=== PATIENT | male | born 1940 | race Caucasian/White ===

== ENCOUNTER 2017-06-03 02:26 | Inpatient (IN) | payer OTHER ==
[~2017-06-03] VITALS: Ht 175.3 cm; Wt 85.0 kg
[~2017-06-03 02:26] MED LIST: CRESTOR5 M1 PO; DILTIAZEM 24HR180 MG PO; ELIQUIS5 M1 PO; METOPROLOL SUC100 M2 PO; METOPROLOL SUCC50 M2 PO; OMEPRAZOLE20 M2 PO; SLOW-MAG71.5 MG PO; TERAZOSIN HCL10 M1 PO
--- NOTE | 2017-06-03 10:01 | Operative Report ---
Operative/Inv Procedure Report Surgery Date: 06/03/17 Name of Procedure: Right total knee arthroplasty Pre-Operative Diagnosis: Primary the arthritis right knee Post-Operative Diagnosis: Primary osteoarthritis right knee Estimated Blood Loss: less than 50ml Surgeon/Obiee Obia Solution Architect: Emre TINAJERO,Maximilian TAVAREZ Anesthesia: block (SPINAL) IV Fluids: See anesthesia record Implants: Striker triathlon posterior stabilize knee. Size 4 femur, size 4 tibia, 31 patella and a 13 mm polyethylene insert Drains: None Specimens: Bone to pathology Tourniquet: 48 minutes Complications: None Condition: Stable Operative Indication: Patient is very pleasant [age] male with severe osteoarthritis of the right knee. He failed conservative treatment is indicated for right total knee arthroscopy. Skilled set hands was necessary provided by physician clinical data assistant Ceasar Turpin weighted with positioning retraction component assembly throughout the case. Operative/Procedure Note Note: Once informed consent was obtained and the correct limb was identified patient brought to operative room placed on table supine position. After administration of spinal anesthesia patient's right thigh had a tourniquet placed, a Reed catheter was placed in the right lower chamois was prepped and draped usual sterile fashion. To begin the procedure standard midline incision was made and sharp dissection carried down through skin and subcutaneous tissue and fat. A medial parapatellar arthrotomy is performed. The patella was everted. Fat pad is removed from the patellar tendon. Patellar thickness was measured be 26 m and a plan resection of 9 mm of bone was taken off the patella with the patellar jig. Patella sized to size 31 patella and the drill holes were made for the patellar button. At this point patella was retracted laterally and laterally and protected and the knee was placed in flexion. Intramedullary canal the femur was entered with a step drill. Distal femoral cutting guide was placed with a 6 valgus cut and 10 mm's of bone resection set. Distal cut was made without, patient bone was passed off as specimen for pathology. The femur was then sized to be a size 4 femur with the sizing guide. A size 4, 4-in-1 cutting block was placed on the distal femur and anterior, posterior, chamfer cuts made without complication. At this point the box cut guide for size 4 femur was placed on the femur and the box cut was made. All bone was passed off as specimen. At this point the medial and lateral menisci were identified and resected sharply with a #10 blade. Step drill was then used to enter the intramedullary canal the tibia. A pickle fork retractor was placed behind the tibia and the tibia translated anteriorly. The tibial cutting guide was then set for a 4 mm resection off the medial compartment of the knee. The tibial cut was made without consultation bone was passed off. The tibia sized to be a size 4 tibia. Trial reduction was done the size 4 tibia size 4 femur and 11 mm polyethylene insert insert. The knee was loose to varus valgus stress with the 11 mm insert and we went up to a 13 insert. The knee had full extension 120 of flexion was stable at 0 and 60 to varus and valgus stress. Knee was taken through a range of motion component of the tibia was marked for rotation. All instruments removed and the cement was mixed on the back table. The keel cut was made. Complication. Once the cement was ready the components were cemented in place with the tibial component cemented first followed by the femoral component and patellar button. Excess cement was removed curettes. Knee is placed in extension while the cement hardened. Knee was again taken through a range of motion found be stable to 13 mm polyethylene trial. A 13 mm polyethylene insert was opened and locked into the tibial tray. The knee was pulse lavaged and the tourniquet was released. Bleeding was stopped with electrocautery. The arthrotomy is closed #1 Vicryl sutures. The subcutaneous tissues closed #1 Vicryl and 2-0 Vicryl interrupted sutures. The skin was closed stuart. Sterile dressings applied and patient was taken recovery in stable condition.
--- NOTE | 2017-06-03 13:53 | Admission Core Measures ---
Acute Coronary Syndrome (CM) ACS Core Measures Acute Coronary Syndrome Diagnosis No Congestive Heart Failure (NEW) CHF Core Measures Congestive Heart Failure Diagnosis No Cerebrovascular Accident (NEW) CVA Core Measures CVA/TIA Diagnosis No Venous Thromboembolism VTE Core [place] (View Protocol) VTE Risk Factors Surgery No Mechanical VTE Prophylaxis d/t N/A MechProphylax Ordered No VTE Pharm Prophylaxis d/t NA PharmProphylax ordered Problem List As ranked by this Provider includes Assessment & Plan 1. Unilateral primary osteoarthritis, right knee HOME MEDS Home Med List Apixaban (Eliquis) 5 MG TABLET 1 TAB PO BID AFIB (Reported) Diltiazem HCl (Diltiazem 24HR ER) 180 MG CAP.ER.24H 1 CAP PO DAILY BP ( Reported) Magnesium Chloride (Slow-Mag) 71.5 MG TABLET.DR 2 TAB PO QHS SUPPLEMENT ( Reported) Metoprolol Succinate 100 MG TAB.ER.24H 1 TAB PO 1200 AFIB (Reported) Metoprolol Succinate 50 MG TAB.ER.24H 1 TAB PO QHS AFIB (Reported) Omeprazole 20 MG CAPSULE.DR 1 CAP PO DAILY REFLUX (Reported) Rosuvastatin Calcium (Crestor) 5 MG TABLET 1 TAB PO EOD CHOLESTEROL (Reported ) Terazosin HCl 10 MG CAPSULE 1 CAP PO QHS BLADDER (Reported)
--- NOTE | 2017-06-03 13:55 | Surgical Discharge Summary ---
Visit Information Visit Dates Admission Date: 06/03/17 Discharge Date: 06/07/17 History of Present Illness Chief Complaint: Right knee pain Medical History Pneumonia Vaccine: 01/26/09 Influenza Vaccine: 01/26/09 Surgical History Pertinent Surgical History: knee replacement (R on 06/03/17) Psychosocial History Who Do You Live With? Spouse What is Your Primary Language? Swedish Review of Systems: Refer to H&P Hospital Course Course Attending Physician: Maximilian Andrea MD Primary Care Physician: Martir Salazar MD Hospital Course: Patient was admitted to the hospital for an elective right total knee replacement. The post-procedure course was complicated by bradycardia warranting admission to the critical care unit for monitoring and external pacing. There was a resolution of the bradycardia on post op day one. Pt also had EMILY and was continued on ivf, renally excreated meds were stopped and creatinine normalized within 1 days. The patient was transferred to a general surgical floor. Diet was advanced and tolerated and the patient voided spontaneously. The patient was evaluated and treated by physical therapy. At the time of hospital discharge, the vital signs were stable, neurovascular status was intact, and pain was controlled with the use of oral pain medications. Complications: post op bradycardia, resolved post op EMILY, resolved Allergies: Coded Allergies: No Known Allergies (05/22/17) Significant Procedures: Right total knee arthroplasty on 06/03/[address] Andrea Disposition Summary Disposition Principal Diagnosis: Primary osteoarthritis, right knee Additional Diagnosis: s/p right total knee arthroplasty Discharge Disposition: home health services Discharge Instructions General Discharge Information Code Status: Full Code Patient's Diet: Cardiac diet Patient's Activity: WBAT, RW as needed Follow-Up Instructions/Appts: F/u in [address] Andrea Medications at Discharge Discharge Medications: Continue taking these medications: Metoprolol Succinate (Metoprolol Succinate) 100 MG TAB.ER.24H 1 Tablet ORAL 1200 Comments: Last Taken:06/11/17 Time:9am Metoprolol Succinate (Metoprolol Succinate) 50 MG TAB.ER.24H 1 Tablet ORAL TAKE AT BEDTIME Comments: Last Taken:06/10/17 Time:9pm Apixaban (Eliquis) 5 MG TABLET 1 Tablet ORAL TWICE DAILY Comments: Last Taken:06/11/17 Time:9am Terazosin HCl (Terazosin HCl) 10 MG CAPSULE 1 Capsule ORAL TAKE AT BEDTIME Comments: not taken Diltiazem HCl (Diltiazem 24HR ER) 180 MG CAP.ER.24H 1 Capsule ORAL DAILY Comments: Last Taken:06/11/17 Time:9am Omeprazole (Omeprazole) 20 MG CAPSULE.DR 1 Capsule ORAL DAILY Comments: Last Taken:06/11/17 Time:6am Magnesium Chloride (Slow-Mag) 71.5 MG TABLET.DR 2 Tablet ORAL TAKE AT BEDTIME Comments: not taken Rosuvastatin Calcium (Crestor) 5 MG TABLET 1 Tablet ORAL Every other day Comments: atorvastatin admininstered Last Taken:06/10/17 Time:5pm Start taking the following new medications: Oxycodone HCl/Acetaminophen (Percocet 5-325 MG Tablet) 5 MG-325 MG TABLET 1-2 Tablet ORAL EVERY 4 HOURS NEEDED as needed for PAIN SCALE Qty = 36 No Refills Comments: Last Taken:06/11/17 Time:9am Sennosides/Docusate Sodium (Senna Plus Tablet) 8.6 MG-50 MG TABLET 2 Tablet ORAL AT BEDTIME NEEDED as needed for NO BM IN TWO DAYS Qty = 10 No Refills Comments: not taken
--- NOTE | 2017-06-03 13:57 | Patient Discharge Instructions ---
Discharge Instructions General Discharge Information You were seen/treated for: Primary osteoarthritis right knee You had these procedures: Right total knee arthroplasty on 06/03/17 Watch for these problems: Increasing pain despite the use of pain medication Increasing redness, warmth or swelling Drainage of any type from incision Inability to bear weight on operative leg Persistent nausea and vomiting Fever greater than 101.5 degrees Other wound care: Please keep wound clean and dry. No ointments or lotions of any type on or near incision. Your dressing will be changed by your nurse on the second day after your surgery. Daily dry dressing changes are recommended each day thereafter. Do not soak your wound- no tub baths/swimming. You may shower 48hr after surgery. Diet Recommended Diet: Heart Healthy Activity Activity Self Limited: Yes Activity Limited to: Weight bear as tolerated Other activity limits: Use rolling walker as needed Acute Coronary Syndrome Inclusion Criteria At DC or during hospital stay patient has or had the following: ACS DIAGNOSIS No Discharge Core Measures Meds if any: Prescribed or Continued at Discharge Meds if any: NOT Prescribed or Continued at Discharge Congestive Heart Failure Inclusion Criteria At DC or during hospital stay patient has or had the following: CHF DIAGNOSIS No Discharge Core Measures Meds if any: Prescribed or Continued at Discharge Meds if any: NOT Prescribed or Continued at Discharge Cerebrovascular accident Inclusion Criteria At DC or during hospital stay patient has or had the following: CVA/TIA Diagnosis No Discharge Core Measures Meds if any: Prescribed or Continued at Discharge Meds if any: NOT Prescribed or Continued at Discharge Venous thromboembolism Inclusion Criteria VTE Diagnosis No VTE Type NONE VTE Confirmed by (Test) NONE Discharge Core Measures - Per Current guidelines, there needs to be overlap - treatment for the first 5 days of Warfarin therapy. - If discharged on Warfarin prior to 5 days of - overlap therapy, the patient will need to be - assessed for post discharge needs including - *Post discharge parental anticoagulation - *Warfarin and/or parental anticoagulation education - *Follow up date to check INR post discharge At least 5 days overlap therapy as Inpatient No Meds if any: Prescribed or Continued at Discharge Note: Overlap Therapy is Warfarin and Anticoagulant Meds if any: NOT Prescribed or Continued at Discharge
[2017-06-03 14:00] VITALS: BP 92/60
--- NOTE | 2017-06-03 14:23 | Cons- Medical ---
Boaz Nichole 06/03/17 1419: General Information and HPI Consulting Request Date of Consult: 06/03/17 Requested By: Emre TINAJERO,Maximilian Mckeon Reason for Consult: bradycardia Source of Information: patient, old records Exam Limitations: no limitations History of Present Illness: 72-year-old gentleman former smoker pmh atrial fibrillation maintained on Xarelto, hypertension, dyslipidemia, GI bleed secondary to duodenal ulcer with positive Helicobacter pylori, POD 0 Right total knee arthroplasty found to be bradycardiac s/p surgery. Patient had taken his cardiazem and metoprolol prior to his surgery. Daughter's at bedside. On interview denies chest pain, shortness of breath,nausea, vomiting, dizziness. Allergies/Medications Allergies: Coded Allergies: No Known Allergies (05/22/17) Home Med List: Apixaban (Eliquis) 5 MG TABLET 1 TAB PO BID AFIB (Reported) Apixaban (Eliquis) 2.5 MG TABLET 2.5 MG PO BID dvt ppx Diltiazem HCl (Diltiazem 24HR ER) 180 MG CAP.ER.24H 1 CAP PO DAILY BP ( Reported) Magnesium Chloride (Slow-Mag) 71.5 MG TABLET.DR 2 TAB PO QHS SUPPLEMENT ( Reported) Metoprolol Succinate 100 MG TAB.ER.24H 1 TAB PO 1200 AFIB (Reported) Metoprolol Succinate 50 MG TAB.ER.24H 1 TAB PO QHS AFIB (Reported) Omeprazole 20 MG CAPSULE.DR 1 CAP PO DAILY REFLUX (Reported) Oxycodone HCl/Acetaminophen (Percocet 5-325 MG Tablet) 5 MG-325 MG TABLET 1-2 TAB PO Q4P PRN PAIN SCALE Rosuvastatin Calcium (Crestor) 5 MG TABLET 1 TAB PO EOD CHOLESTEROL (Reported ) Sennosides/Docusate Sodium (Senna Plus Tablet) 8.6 MG-50 MG TABLET 2 TAB PO AT BEDTIME NEEDED PRN NO BM IN TWO DAYS Terazosin HCl 10 MG CAPSULE 1 CAP PO QHS BLADDER (Reported) Current Medications: Current Medications Sig/Rob Start time Last Medication Dose Route Stop Time Status Admin Acetaminophen 0 .STK-MED ONE 06/03 0706 DC PO Acetaminophen 1,000 MG .STK-MED ONE 06/03 0639 DC IV 06/03 0640 Acetaminophen 650 MG ONCE 06/03 0000 DC PO 06/03 2359 Apixaban 2.5 MG BID 06/04 1000 UNVr PO Atorvastatin Calcium 20 MG 1700 06/03 1700 UNVr PO Celecoxib 400 MG DAILY 06/04 1000 UNir PO Celecoxib 400 MG ONCE 06/03 0000 DC PO 06/03 2359 Dexamethasone 0 .STK-MED ONE 06/03 0706 DC .ROUTE Dexamethasone 10 MG ONCE 06/03 0000 DC IV 06/03 2359 Dextrose/Lactated 1,000 ML Q13H 06/03 1500 UNVr Ringer's IV Diltiazem HCl 180 MG DAILY 06/03 1000 UNVr PO Doxazosin Mesylate 2 MG DAILY 06/04 1000 UNVr PO Fentanyl Citrate 200 MCG .STK-MED ONE 06/03 0639 DC IM 06/03 0640 Gabapentin 0 .STK-MED ONE 06/03 07 DC PO Gabapentin 300 MG ONCE 06/03 0000 DC PO 06/03 2359 Magnesium Chloride 143 MG .[QHS] 06/03 1500 UNVr PO Metoprolol Succinate 50 MG .[QHS] 06/03 1500 UNVr PO Metoprolol Succinate 100 MG 1200 06/03 1200 UNVr PO Midazolam HCl 2 MG .STK-MED ONE 06/03 0640 DC IM 06/03 0641 Morphine Sulfate 2 MG Q3P PRN 06/03 1500 UNVr IV Morphine Sulfate 4 MG Q3P PRN 06/03 1500 UNVr IV Omeprazole 20 MG DAILY 06/03 1000 UNVr PO Oxycodone HCl 0 .STK-MED ONE 06/03 0706 DC PO Oxycodone HCl 10 MG ONCE 06/03 0000 DC PO 06/03 2359 Oxycodone/ 1 TAB Q4P PRN 06/03 1500 UNVr Acetaminophen PO Oxycodone/ 2 TAB Q4P PRN 06/03 1500 UNVr Acetaminophen PO Ropivacaine 500 ML ONCE ONE 06/03 0900 DC ON-Q Ball 1 BAG INJ 06/05 1059 Ropivacaine 500 ML ONCE ONE 06/03 0845 CAN ON-Q Ball 1 BAG INJ 06/03 0846 Scopolamine HBr 0 .STK-MED ONE 06/03 0706 DC TOP Scopolamine HBr 1 PAT ONCE 06/03 0000 DC TOP 06/03 2359 Tranexamic Acid 2,000 MG .STK-MED ONE 06/03 0639 DC IV 06/03 0640 Vancomycin HCl 1,000 MG ONCE ONE 06/03 1900 UNir Dextrose/Water 250 ML IV 06/03 1958 Vancomycin HCl 1,000 MG ONCE 06/03 0000 DC Sodium Chloride 250 ML IV 06/03 2359 Review of Systems Review of Systems Constitutional: Denies: chills, diaphoresis, fever, malaise, weakness, unexplained weight loss. Cardiovascular: Denies: chest pain, edema, orthopena, palpitations, peripheral edema, syncope. Respiratory: Denies: cough, hemoptysis, orthopnea, short of breath, sputum production, stridor, wheezing. GI: Denies: abdominal pain, bloating, constipation, diarrhea, distention, bowel incontinence, melena, nausea, bloody stool, changes in stool, vomiting, steatorrhea. Past History Surgical History Surgical History: knee replacement (R on 06/03/17) Psychosocial History Smoking Status: Unknown If Ever Smoked Exam & Diagnostic Data Last 24 Hrs of Vital Signs/I&O Vital Signs Date Time Temp Pulse Resp B/P B/P Pulse O2 O2 Flow FiO2 Mean Ox Delivery Rate 06/05 0920 96 142/64 06/05 0800 98.0 85 20 142/80 94 Room Air Room Air 06/05 0000 94 Room Air 06/05 0000 98.9 88 20 148/90 94 Room Air 06/04 2033 94 20 178/80 06/04 2000 92 Room Air 06/04 1600 98.1 90 24 150/70 92 Room Air Room Air 06/04 1600 92 Room Air 06/04 1237 79 172/72 / 1200 95 Room Air Intake & Output 06/05 1600 06/05 0800 06/05 0000 Intake Total 240 1500 Output Total 2250 2750 Balance -[id number] Intake, IV 700 Intake, Oral 240 800 Number 0 Bowel Movements Output, Urine 2250 2750 Physical Exam General Appearance: alert, awake, comfortable Respiratory: normal breath sounds Cardiovascular: bradycardia, irregularly irregular Gastrointestinal: normal bowel sounds, non-tender, distention Last 24 Hrs of Labs/Corey: Laboratory Tests 06/06/17 0623: Anion Gap 9, Estimated GFR > 60, BUN/Creatinine Ratio 20.9, CBC w Diff Pending, WBC Pending, RBC Pending, Hgb Pending, Hct Pending, MCV Pending, MCH Pending, MCHC Pending, RDW Pending, Plt Count Pending, MPV Pending Assessment/Plan Assessment/Plan 72-year-old gentleman former smoker pmh atrial fibrillation maintained on Xarelto, hypertension, dyslipidemia, GI bleed secondary to duodenal ulcer with positive Helicobacter pylori, POD 0 Right total knee arthroplasty found to be bradycardiac s/p surgery. Problem list: s/p Total knee replacement bradycardia hypotension atrial fibriallation plan: monitor in ICU, vitals per protocol pacer and atropine at bedside, currently asymptomatic, cardio on board hold all antihypertensive restart AC after surgery clearance TKR post-op management full code Consult Acknowledgment - Thank you for your consult request. Marie TINAJERO,Martir 06/03/17 2106: Assessment/Plan Consult Acknowledgment - Thank you for your consult request. Attending MD Review Statement Attending Statement Attending MD Statement: examined this patient, discuss w/resident/PA/VOLUNTEER SPECIALIST, agreed w/resident/PA/VOLUNTEER SPECIALIST, discussed with family, reviewed EMR data (avail), discussed with nursing, amended to note Attending Assessment/Plan: Mr. Beavers was interviewed and examined. His EHR was reviewed. Discussion was undertaken with his family members Problems: -Post operative bradycardia arrhythmia/S/P R total knee arthroplasty -Atrial fibrillation -Hypertension -Dyslipidemia -COPD -BPH -Osteoarthritis of bilateral knees -Lumbar osteoarthritis Plan: -Admit [facility]CU -Telemetry -Hold beta ana cristina and calcium channel ana cristina -Hold anticoagulation until approved by or thrill -Cardiology consultation -Agree with external pacemaker -Continue other maintenance medications -TRC evaluation if needed -Postoperative management and analgesia per orthopedics
[2017-06-03 16:00] VITALS: BP 90/50
--- NOTE | 2017-06-03 17:13 | PN- Orthopedic ---
Subjective Subjective: POSTOP CHECK In ICU for postop monitoring due to bradycardia. barbara reg diet. no oob. external pacer pads on. no knee pain currently. Denies CP, SOB, dizziness,nausea, vomiting, headache ,fever, chills. Objective Vital Signs and I&Os Vital Signs HR: 40s-50s SBOP:mid-90s Date Time Temp Pulse Resp B/P B/P Pulse O2 O2 Flow FiO2 Mean Ox Delivery Rate 06/03 1400 95 Nasal 2.0L Cannula Intake & Output 06/03 1600 06/03 0800 06/03 0000 06/02 1600 06/02 0800 06/02 0000 Intake Total Output Total Balance Patient 187 lb Weight Weight Bed scale Measurement Method Physical Exam: gen- nad card- s1s2, salvatore in 40s pulm- CTAB abd-soft nt ext- RLE dressed, cdi, nontender +dorsi/plantar flexion, strength equal bl, gross toe movement intact, feet warm, calves soft nt, alps on, OnQ in place Assessment/Plan Assessment/Plan A- POD0 sp R TKR for OA, with bradycardia postoperatively, requiring close monitoring in ICU P- appreciate medical, cardiology input- per cards, salvatore likely due to meds/ anesthesia external pacer pads in place on pt prn pain meds oob, pt, wbat anticoag: eliquis bid reg diet as tolerated home meds- hold antihtns for now dc planning Core Measures Venous Thromboembolism VTE Risk Factors Surgery No Mechanical VTE Prophylaxis d/t N/A MechProphylax Ordered No VTE Pharm Prophylaxis d/t NA PharmProphylax ordered
--- NOTE | 2017-06-03 20:13 | Cons- Cardiology ---
General Information and HPI Consulting Request Date of Consult: 06/03/17 Requested By: Emre TINAJEOR,Maximilian Mckeon Reason for Consult: Post op bradycardia Source of Information: patient, family, old records Exam Limitations: no limitations History of Present Illness: 76 year old male known to me. History of AF, HTN, HLD. Now post op knee replacement. In the recovery room noted to be in AF with bradycardia and rates in the 40s. The patient is awake and alert and denies any CV symptoms. Also noted to be mildly hypotensive. THe patient took his cardizem and metoprolol this AM prior to the surgery. Allergies/Medications Allergies: Coded Allergies: No Known Allergies (05/22/17) Home Med List: Apixaban (Eliquis) 5 MG TABLET 1 TAB PO BID AFIB (Reported) Apixaban (Eliquis) 2.5 MG TABLET 2.5 MG PO BID dvt ppx Diltiazem HCl (Diltiazem 24HR ER) 180 MG CAP.ER.24H 1 CAP PO DAILY BP ( Reported) Magnesium Chloride (Slow-Mag) 71.5 MG TABLET.DR 2 TAB PO QHS SUPPLEMENT ( Reported) Metoprolol Succinate 100 MG TAB.ER.24H 1 TAB PO 1200 AFIB (Reported) Metoprolol Succinate 50 MG TAB.ER.24H 1 TAB PO QHS AFIB (Reported) Omeprazole 20 MG CAPSULE.DR 1 CAP PO DAILY REFLUX (Reported) Oxycodone HCl/Acetaminophen (Percocet 5-325 MG Tablet) 5 MG-325 MG TABLET 1-2 TAB PO Q4P PRN PAIN SCALE Rosuvastatin Calcium (Crestor) 5 MG TABLET 1 TAB PO EOD CHOLESTEROL (Reported ) Sennosides/Docusate Sodium (Senna Plus Tablet) 8.6 MG-50 MG TABLET 2 TAB PO AT BEDTIME NEEDED PRN NO BM IN TWO DAYS Terazosin HCl 10 MG CAPSULE 1 CAP PO QHS BLADDER (Reported) Current Medications: Current Medications Sig/Rob Start time Last Medication Dose Route Stop Time Status Admin Acetaminophen 0 .STK-MED ONE 06/03 0706 DC PO Acetaminophen 1,000 MG .STK-MED ONE 06/03 0639 DC IV 06/03 0640 Acetaminophen 650 MG ONCE 06/03 0000 DC PO 06/03 2359 Apixaban 2.5 MG BID 06/04 1000 DC PO Apixaban 5 MG BID 06/03 2200 AC PO Atorvastatin Calcium 20 MG 1700 06/03 1700 AC 06/03 PO 1748 Celecoxib 400 MG DAILY 06/04 1000 AC PO Celecoxib 400 MG ONCE 06/03 0000 DC PO 06/03 2359 Dexamethasone 0 .STK-MED ONE 06/03 0706 DC .ROUTE Dexamethasone 10 MG ONCE 06/03 0000 DC IV 06/03 2359 Dextrose/Lactated 1,000 ML Q13H 06/03 1500 AC 06/03 Ringer's IV 06/03 2300 1500 Diltiazem HCl 180 MG DAILY 06/03 1000 AC PO Docusate Sodium 100 MG DAILY NEEDED PRN 06/03 1500 AC PO Doxazosin Mesylate 2 MG DAILY 06/04 1000 DC PO Doxazosin Mesylate 4 MG AT BEDTIME 06/03 2200 AC PO Fentanyl Citrate 200 MCG .STK-MED ONE 06/03 0639 DC IM 06/03 0640 Gabapentin 0 .STK-MED ONE 06/03 0706 DC PO Gabapentin 300 MG ONCE 06/03 0000 DC PO 06/03 2359 Magnesium Chloride 128 MG AT BEDTIME 06/03 2200 AC PO Metoprolol Succinate 50 MG AT BEDTIME 06/04 2200 AC PO Metoprolol Succinate 100 MG QAM 06/04 1000 AC PO Metoprolol Succinate 50 MG AT BEDTIME 06/03 2200 DC PO Metoprolol Succinate 100 MG 1200 06/03 1200 DC PO Midazolam HCl 2 MG .STK-MED ONE 06/03 0640 DC IM 06/03 0641 Morphine Sulfate 2 MG Q3P PRN 06/03 1500 AC IV Morphine Sulfate 4 MG Q3P PRN 06/03 1500 AC IV Omeprazole 20 MG DAILY 06/03 1000 AC PO Ondansetron HCl 4 MG Q6P PRN 06/03 1500 AC IV Oxycodone HCl 0 .STK-MED ONE 06/03 0706 DC PO Oxycodone HCl 10 MG ONCE 06/03 0000 DC PO 06/03 2359 Oxycodone/ 1 TAB Q4P PRN 06/03 1500 AC Acetaminophen PO Oxycodone/ 2 TAB Q4P PRN 06/03 1500 AC Acetaminophen PO Polyethylene Glycol 17 GM DAILY NEEDED PRN 06/03 1500 AC PO Ropivacaine 500 ML ONCE ONE 06/03 0900 DC 06/03 ON-Q Ball 1 BAG INJ 06/05 1059 1000 Ropivacaine 500 ML ONCE ONE 06/03 0845 CAN ON-Q Ball 1 BAG INJ 06/03 0846 Scopolamine HBr 0 .STK-MED ONE 06/03 0706 DC TOP Scopolamine HBr 1 PAT ONCE 06/03 0000 DC TOP 06/03 2359 Senna/Docusate Sodium 2 TAB AT BEDTIME NEED.. 06/03 1500 AC PO Tamsulosin HCl 0.4 MG DAILY 06/04 1000 AC PO Tranexamic Acid 2,000 MG .STK-MED ONE 06/03 0639 DC IV 06/03 0640 Vancomycin HCl 1,000 MG ONCE ONE 06/03 1900 DC Dextrose/Water 250 ML IV 06/03 1959 Vancomycin HCl 1,000 MG ONCE 06/03 0000 DC Sodium Chloride 250 ML IV 06/03 2359 Past History Medical History Blood Transfusion Hx: Yes Neurological: NONE EENT: NONE Cardiovascular: AFIB, CAD, hypertension, hyperlipidemia, mitral regurgitation Respiratory: NONE Gastrointestinal: BLEEDING ULCER 2008 Hepatic: NONE Renal: benign prost hyperplasia Musculoskeletal: degen joint disease, osteoarthritis Psychiatric: NONE Endocrine: NONE Blood Disorders: NONE Cancer(s): 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 Home Services at Home: None Smoking Status: Former Smoker Exam & Diagnostic Data Vital Signs and I&O Vital Signs Date Time Temp Pulse Resp B/P B/P Pulse O2 O2 Flow FiO2 Mean Ox Delivery Rate 06/03 1600 97 Nasal 2.0L Cannula 06/03 1600 97.4 39 16 90/50 97 Nasal 2.0L Cannula 06/03 1400 97.2 34 12 92/60 95 Nasal 2.0L Cannula 06/03 1400 95 Nasal 2.0L Cannula Intake & Output 06/03 1600 06/03 0800 06/03 0000 06/02 1600 06/02 0800 06/02 0000 Intake Total 2760 Output Total 1265 Balance 1495 Intake, IV 2000 Intake, Oral 760 Output, Urine 1265 Patient 187 lb Weight Weight Bed scale Measurement Method Physical Exam: General Appearance: alert, awake, comfortable Respiratory: normal breath sounds Cardiovascular: bradycardia, irregularly irregular, 1-2/6 systolic murmur Gastrointestinal: normal bowel sounds, non-tender Labs/Corey Results: Laboratory Tests 06/05 06/05 06/04 0628 0440 2307 Chemistry Sodium (137 - 145 mmol/L) 143 141 Potassium (3.5 - 5.1 mmol/L) 3.8 3.9 Chloride (98 - 107 mmol/L) 102 103 Carbon Dioxide (22 - 30 mmol/L) 28 27 Anion Gap (5 - 16) 14 11 BUN (9 - 20 mg/dL) 23 H 26 H Creatinine (0.7 - 1.2 mg/dL) 1.1 1.3 H Estimated GFR (>60 ml/min) > 60 54 L BUN/Creatinine Ratio (7 - 25 %) 20.9 Glucose (65 - 99 mg/dL) 191 H Calcium (8.4 - 10.2 mg/dL) 9.3 Phosphorus (2.5 - 4.5 mg/dL) 2.6 Magnesium (1.6 - 2.3 mg/dL) Cancelled 2.2 1.5 L Total Bilirubin (0.2 - 1.3 mg/dL) 0.5 AST (17 - 59 U/L) 25 ALT (21 - 72 U/L) 31 Albumin (3.5 - 5.0 g/dL) 3.6 Hematology CBC w Diff NO MAN DIFF REQ WBC (4.8 - 10.8 /CUMM) 13.6 H RBC (4.70 - 6.10 /CUMM) 4.06 L Hgb (14.0 - 18.0 G/DL) 12.4 L Hct (42 - 52 %) 36.6 L MCV (80.0 - 94.0 FL) 90.1 MCH (27.0 - 31.0 PG) 30.5 MCHC (33.0 - 37.0 G/DL) 33.8 RDW (11.5 - 14.5 %) 14.3 Plt Count (130 - 400 /CUMM) 140 MPV (7.4 - 10.4 FL) 10.6 H Gran % (42.2 - 75.2 %) 77.8 H Lymphocytes % (20.5 - 51.1 %) 13.9 L Monocytes % (1.7 - 9.3 %) 8.1 Eosinophils % (0 - 5 %) 0 Basophils % (0.0 - 2.0 %) 0.2 Absolute Granulocytes (1.4 - 6.5 /CUMM) 10.6 H Absolute Lymphocytes (1.2 - 3.4 /CUMM) 1.9 Absolute Monocytes (0.10 - 0.60 /CUMM) 1.1 H Absolute Eosinophils (0.0 - 0.7 /CUMM) 0 Absolute Basophils (0.0 - 0.2 /CUMM) 0 06/04 06/04 1525 0350 Chemistry Sodium (137 - 145 mmol/L) 141 138 Potassium (3.5 - 5.1 mmol/L) 4.1 4.9 Chloride (98 - 107 mmol/L) 104 104 Carbon Dioxide (22 - 30 mmol/L) 25 20 L Anion Gap (5 - 16) 12 14 BUN (9 - 20 mg/dL) 25 H 28 H Creatinine (0.7 - 1.2 mg/dL) 1.6 H 1.7 H Estimated GFR (>60 ml/min) 42 L 40 L BUN/Creatinine Ratio (7 - 25 %) 15.6 16.5 Hematology CBC w Diff NO MAN DIFF REQ WBC (4.8 - 10.8 /CUMM) 11.1 H RBC (4.70 - 6.10 /CUMM) 3.89 L Hgb (14.0 - 18.0 G/DL) 11.9 L Hct (42 - 52 %) 35.5 L MCV (80.0 - 94.0 FL) 91.3 MCH (27.0 - 31.0 PG) 30.5 MCHC (33.0 - 37.0 G/DL) 33.4 RDW (11.5 - 14.5 %) 14.4 Plt Count (130 - 400 /CUMM) 147 MPV (7.4 - 10.4 FL) 10.9 H Gran % (42.2 - 75.2 %) 85.7 H Lymphocytes % (20.5 - 51.1 %) 9.9 L Monocytes % (1.7 - 9.3 %) 4.2 Eosinophils % (0 - 5 %) 0 Basophils % (0.0 - 2.0 %) 0.2 Absolute Granulocytes (1.4 - 6.5 /CUMM) 9.5 H Absolute Lymphocytes (1.2 - 3.4 /CUMM) 1.1 L Absolute Monocytes (0.10 - 0.60 /CUMM) 0.5 Absolute Eosinophils (0.0 - 0.7 /CUMM) 0 Absolute Basophils (0.0 - 0.2 /CUMM) 0 Diagnostic Data EKG Results Atrial fibrillation with bradycardia Assessment/Plan Assessment/Plan Assessment: 1. Atrial fibrillation with post operative bradycardia 2. Post op hypotension 3. History of HTN 4. HLD 5. COPD Recommendations: - MOnitor overnight in ICU - HOld cardizem and Metoprolol for now - CLose monitoring of heart rate and BP - External pacemaker in place - CHeck labs and troponin x 2 - Watch H/H post op - Plan to restart meds when heart rate and BP improve - Otherwise continue as per orthopedic surgery. Consult Acknowledgment - Thank you for your consult request.
[2017-06-04] VITALS: BP 110/60
[2017-06-04 04:18] LABS: ABSOLUTE BASOPHIL COUNT 0 /CUMM (0.0-0.2); ABSOLUTE EOSINOPHIL COUNT 0 /CUMM (0.0-0.7); ABSOLUTE GRANULOCYTE CT 9.5 /CUMM (1.4-6.5); ABSOLUTE LYMPH COUNT 1.1 /CUMM (1.2-3.4); ABSOLUTE MONOCYTE COUNT 0.5 /CUMM (0.10-0.60); BASOPHIL % 0.2 % (0.0-2.0); EOSINOPHIL % 0 % (0-5); HEMATOCRIT 35.5 % (42-52); MEAN CORPUSCULAR HGB 30.5 PG (27.0-31.0); MEAN CORPUSCULAR HGB CONC 33.4 G/DL (33.0-37.0); MEAN CORPUSCULAR VOLUME 91.3 FL (80.0-94.0); MEAN PLATELET VOLUME 10.9 FL (7.4-10.4); RBC DISTRIBUTION WIDTH 14.4 % (11.5-14.5); RED BLOOD CELL CT 3.89 /CUMM (4.70-6.10); WHITE BLOOD CELL COUNT 11.1 /CUMM (4.8-10.8)
[2017-06-04 04:53] LABS: PLATELET COUNT 147 /CUMM (130-400)
[2017-06-04 04:54] LABS: GRANULOCYTE % 85.7 % (42.2-75.2)
--- NOTE | 2017-06-04 07:14 | PN- Gen Med ---
Assessment/Plan Medical Assessment: 72-year-old gentleman former smoker pmh atrial fibrillation maintained on Xarelto, hypertension, dyslipidemia, GI bleed secondary to duodenal ulcer with positive Helicobacter pylori, POD 0 Right total knee arthroplasty found to be in Afib adn bradycardiac s/p surgery, Also noted to be mildly hypotensive Problem list: -s/p Total knee replacement -Atrial fibrillation with post operative bradycardia -Post op hypotension -EMILY -History of hypertension, hyperlipidemia, COPD Recommendations -Restart metoprolol and Cardizem at home dose resolution of bradycardia and hypotension -Continue IV fluids for now repeat BEP in p.m. to monitor creatinine baseline around 1 -Avoid NSAIDs -Anticoagulation remains on hold until approved by Ortho -Postoperative management and analgesia per orthopedics -Downgrade to TELE -F/U cardiology reccs Problem List: 1. ATRIAL FIBRILATION Subjective Follow-up For: post op bradycardiaand post op hypotension Subjective: Tmax 97.6, HR 70s to 80s BP 120 to 160/80s to 60, oxygen saturation 93% on 2 L. Patient resting comfortably. Pacers is in place. Denies any complaints. Downgrade to tele Review of Systems Constitutional: Reports: see HPI. Objective Last 24 Hrs of Vital Signs/I&O Vital Signs Date Time Temp Pulse Resp B/P B/P Pulse O2 O2 Flow FiO2 Mean Ox Delivery Rate 06/04 0400 93 Nasal 2.0L Cannula 06/04 0000 93 Nasal 2.0L Cannula 06/04 0000 97.6 45 16 110/60 93 Nasal 2.0L Cannula 06/03 2000 92 Nasal 2.0L Cannula 06/03 1600 97 Nasal 2.0L Cannula 06/03 1600 97.4 39 16 90/50 97 Nasal 2.0L Cannula 06/03 1400 97.2 34 12 92/60 95 Nasal 2.0L Cannula 06/03 1400 95 Nasal 2.0L Cannula Intake & Output 06/04 0800 06/04 0000 06/03 1600 Intake Total 1150 1211 2760 Output Total 980 64 4703 Balance 700 1141 1495 Intake, IV 0942 889 1929 Intake, Oral 50 330 760 Output, Urine 084 90 7064 Patient 187 lb Weight Weight Bed scale Measurement Method Physical Exam General Appearance: Alert, Oriented X3, Cooperative Skin: No Rashes, No Breakdown, No Significant Lesion Cardiovascular: Regular Rate, Normal S1, Normal S2 Lungs: Clear to Auscultation Abdomen: Normal Bowel Sounds, Soft, No Tenderness Current Medications: Current Medications Sig/Rob Start time Last Medication Dose Route Stop Time Status Admin Acetaminophen 650 MG ONCE 06/03 0000 DC PO 06/03 2359 Apixaban 2.5 MG BID 06/04 1000 DC PO Apixaban 5 MG BID 06/03 2200 AC 06/04 PO 0937 Atorvastatin Calcium 20 MG 1700 06/03 1700 AC 06/03 PO 1748 Celecoxib 400 MG DAILY 06/04 1000 CAN PO Celecoxib 400 MG ONCE 06/03 0000 DC PO 06/03 2359 Dexamethasone 10 MG ONCE 06/03 0000 DC IV 06/03 2359 Dextrose/Lactated 1,000 ML Q13H 06/04 0445 AC 06/04 Ringer's IV 0510 Dextrose/Lactated 1,000 ML Q13H 06/03 1500 DC 06/03 Ringer's IV 06/03 2300 1500 Diltiazem HCl 180 MG DAILY 06/03 1000 AC 06/04 PO 0937 Docusate Sodium 100 MG DAILY NEEDED PRN 06/03 1500 AC PO Doxazosin Mesylate 4 MG AT BEDTIME 06/05 2200 AC PO Doxazosin Mesylate 2 MG DAILY 06/04 1000 DC PO Doxazosin Mesylate 4 MG AT BEDTIME 06/03 2200 DC PO Gabapentin 300 MG ONCE 06/03 0000 DC PO 06/03 2359 Magnesium Chloride 128 MG AT BEDTIME 06/03 2200 AC 06/03 PO 2153 Melatonin 5 MG ONCE ONE 06/04 0330 DC PO 06/04 0331 Metoprolol Succinate 50 MG AT BEDTIME 06/04 2200 AC PO Metoprolol Succinate 100 MG QAM 06/04 1000 AC 06/04 PO 1237 Metoprolol Succinate 50 MG AT BEDTIME 06/03 2200 DC PO Metoprolol Succinate 100 MG 1200 06/03 1200 DC PO Morphine Sulfate 2 MG Q3P PRN 06/03 1500 AC IV Morphine Sulfate 4 MG Q3P PRN 06/03 1500 AC IV Omeprazole 20 MG DAILY 06/03 1000 AC 06/04 PO 0937 Ondansetron HCl 4 MG Q6P PRN 06/03 1500 AC IV Oxycodone HCl 10 MG ONCE 06/03 0000 DC PO 06/03 2359 Oxycodone/ 1 TAB Q4P PRN 06/03 1500 AC Acetaminophen PO Oxycodone/ 2 TAB Q4P PRN 06/03 1500 AC Acetaminophen PO Polyethylene Glycol 17 GM DAILY NEEDED PRN 06/03 1500 AC PO Ropivacaine 500 ML ONCE ONE 06/03 0900 DC 06/03 ON-Q Ball 1 BAG INJ 06/05 1059 1000 Scopolamine HBr 1 PAT ONCE 06/03 0000 DC TOP 06/03 2359 Senna/Docusate Sodium 2 TAB AT BEDTIME NEED.. 06/03 1500 AC PO Tamsulosin HCl 0.4 MG DAILY 06/04 1000 DC 06/04 PO 0937 Vancomycin HCl 1,000 MG ONCE ONE 06/03 1900 DC 06/03 Dextrose/Water 250 ML IV 06/03 Vancomycin HCl 1,000 MG ONCE 06/03 0000 DC Sodium Chloride 250 ML IV 06/03 2358 Last 24 Hrs of Labs/Mics: Laboratory Tests 06/04/17 0350: Anion Gap 14, Estimated GFR 40 L, BUN/Creatinine Ratio 16.5, CBC w Diff NO MAN DIFF REQ, RBC 3.89 L, MCV 91.3, MCH 30.5, MCHC 33.4, RDW 14.4, MPV 10.9 H, Gran % 85.7 H, Lymphocytes % 9.9 L, Monocytes % 4.2, Eosinophils % 0, Basophils % 0.2, Absolute Granulocytes 9.5 H, Absolute Lymphocytes 1.1 L, Absolute Monocytes 0.5, Absolute Eosinophils 0, Absolute Basophils 0 Microbiology 06/03 1450 UPPER RESP: Surveillance Culture - RECD 06/03 1450 GI: Surveillance Culture - RECD
[2017-06-04 08:00] VITALS: BP 160/70
--- NOTE | 2017-06-04 08:42 | PN- Orthopedic ---
Subjective Subjective: Patient evaluated in ICU overnight for bradycardia. He was without complaints of chest pain, shortness of breath and difficulty breathing. He is currently no longer bradycardic and is denying any chest discomfort. He is presently without complaints of pain. He denies nausea and vomitting. He has barragan cathter in place. He has yet to ambulate, await PT. Objective Vital Signs and I&Os Vital Signs Date Time Temp Pulse Resp B/P B/P Pulse O2 O2 Flow FiO2 Mean Ox Delivery Rate 06/04 0400 93 Nasal 2.0L Cannula 06/04 0000 93 Nasal 2.0L Cannula 06/04 0000 97.6 45 16 110/60 93 Nasal 2.0L Cannula 06/03 1999 92 Nasal 2.0L Cannula 06/03 1600 97 Nasal 2.0L Cannula 06/03 1600 97.4 39 16 90/50 97 Nasal 2.0L Cannula 06/03 1400 97.2 34 12 92/60 95 Nasal 2.0L Cannula 06/03 1400 95 Nasal 2.0L Cannula Intake & Output 06/04 1600 06/04 0800 06/04 0000 06/03 1600 06/03 0800 06/03 0000 Intake Total 1150 1211 2760 Output Total 023 95 3986 Balance 700 1141 1495 Intake, IV 4033 302 4694 Intake, Oral 50 330 760 Output, Urine 462 67 3640 Patient 187 lb Weight Weight Bed scale Measurement Method Physical Exam: General: Alert and oriented x3, no acute distress Cardaic: irregularly irregular. Pulm: CTA bilaterally, non-labored respiratory effort ABD: Non-tender, non-distended Extremities: Moves all extremities, distal sensation intact. Motor 5/5 in plantar and dorsi flexion. Full extension to right knee. No varus or valgus deformity noted. Dressing dry and intact. On Q in place, no evidence of leak. Distal pulses palpable. Skin warm and well perfused. Bilateral calves soft and non-tender. Assessment/Plan Assessment/Plan This is a 76 year old male with a PMH signficant for afib, htn, hld, bph, gerd. He is POD 1, s/p R TKR. Post operative course complicated by bradycardia to 30s, external pacing warranted. There has since been a resolution of bradycardia, pt no longer requiring pacing. Urine output low overnight, EMILY noted in BEP this am, creatinine to 1.7 from a pre-operative documented creatinine of 1.2 one month ago. -Continue IV hydration, continue barragan for now. Monitor output, it is improving presently. -Hold NSAID (celebrex) this am, no toradol to be ordered today -Recheck Creatinine this afternoon, if improved, dc iv fluids and barragan -Can get OOB with PT, wbat -DVT ppx/afib tx: Eliquis 5mg bid, started yesterday, continue -Continue diet as tolerated Discussed at bedside with Dr. Andrea Core Measures Venous Thromboembolism VTE Risk Factors Surgery No Mechanical VTE Prophylaxis d/t N/A MechProphylax Ordered No VTE Pharm Prophylaxis d/t NA PharmProphylax ordered
--- NOTE | 2017-06-04 10:54 | PN- Cardiology ---
Tara TINAJERO,[facility] 06/04/17 1042: Subjective Subjective: Patient was seen and examined this morning, out of bed and had physical therapy. Patient denied any chest pain, palpitation, dizziness, blurry vision. Pacer was placed overnight however patient did not require pacing. Objective Vital Signs and I&Os Vital Signs Date Time Temp Pulse Resp B/P B/P Pulse O2 O2 Flow FiO2 Mean Ox Delivery Rate 06/04 0937 77 183/85 06/04 0400 93 Nasal 2.0L Cannula 06/04 0000 93 Nasal 2.0L Cannula 06/04 0000 97.6 45 16 110/60 93 Nasal 2.0L Cannula 06/03 2000 92 Nasal 2.0L Cannula 06/03 1600 97 Nasal 2.0L Cannula 06/03 1600 97.4 39 16 90/50 97 Nasal 2.0L Cannula 06/03 1400 97.2 34 12 92/60 95 Nasal 2.0L Cannula 06/03 1400 95 Nasal 2.0L Cannula Intake & Output 06/04 1600 06/04 0800 06/04 0000 06/03 1600 06/03 0800 06/03 0000 Intake Total 1150 1211 2760 Output Total 637 13 2168 Balance 700 1141 1495 Intake, IV 1995 235 8516 Intake, Oral 50 330 760 Output, Urine 417 71 3968 Patient 85.02 kg Weight Weight Bed scale Measurement Method Physical Exam: Gen. no acute distress Cardiovascular S1-S2 irregular, no murmur Lung Clear bilateral, no wheeze Abdomen soft, positive bowel sounds LE peripheral pulses palpable, trace pedal edema Current Medications: Current Medications Sig/Rob Start time Last Medication Dose Route Stop Time Status Admin Acetaminophen 650 MG ONCE 06/03 0000 DC PO 06/03 2359 Apixaban 2.5 MG BID 06/04 1000 DC PO Apixaban 5 MG BID 06/03 2200 AC 06/04 PO 0937 Atorvastatin Calcium 20 MG 1700 06/03 1700 AC 06/03 PO 1748 Celecoxib 400 MG DAILY 06/04 1000 CAN PO Celecoxib 400 MG ONCE 06/03 0000 DC PO 06/03 2359 Dexamethasone 10 MG ONCE 06/03 0000 DC IV 06/03 2359 Dextrose/Lactated 1,000 ML Q13H 06/04 0445 AC 06/04 Ringer's IV 0510 Dextrose/Lactated 1,000 ML Q13H 06/03 1500 DC 06/03 Ringer's IV 06/03 2300 1500 Diltiazem HCl 180 MG DAILY 06/03 1000 AC 06/04 PO 0937 Docusate Sodium 100 MG DAILY NEEDED PRN 06/03 1500 AC PO Doxazosin Mesylate 2 MG DAILY 06/04 1000 DC PO Doxazosin Mesylate 4 MG AT BEDTIME 06/03 2200 AC PO Gabapentin 300 MG ONCE 06/03 0000 DC PO 06/03 2359 Magnesium Chloride 128 MG AT BEDTIME 06/03 2200 AC 06/03 PO 2153 Melatonin 5 MG ONCE ONE 06/04 0330 DC PO 06/04 0331 Metoprolol Succinate 50 MG AT BEDTIME 06/04 2200 AC PO Metoprolol Succinate 100 MG QAM 06/04 1000 AC PO Metoprolol Succinate 50 MG AT BEDTIME 06/03 2200 DC PO Metoprolol Succinate 100 MG 1200 06/03 1200 DC PO Morphine Sulfate 2 MG Q3P PRN 06/03 1500 AC IV Morphine Sulfate 4 MG Q3P PRN 06/03 1500 AC IV Omeprazole 20 MG DAILY 06/03 1000 AC 06/04 PO 0937 Ondansetron HCl 4 MG Q6P PRN 06/03 1500 AC IV Oxycodone HCl 10 MG ONCE 06/03 0000 DC PO 06/03 2359 Oxycodone/ 1 TAB Q4P PRN 06/03 1500 AC Acetaminophen PO Oxycodone/ 2 TAB Q4P PRN 06/03 1500 AC Acetaminophen PO Polyethylene Glycol 17 GM DAILY NEEDED PRN 06/03 1500 AC PO Ropivacaine 500 ML ONCE ONE 06/03 0900 DC 06/03 ON-Q Ball 1 BAG INJ 06/05 1059 1000 Scopolamine HBr 1 PAT ONCE 06/03 0000 DC TOP 06/03 2359 Senna/Docusate Sodium 2 TAB AT BEDTIME NEED.. 06/03 1500 AC PO Tamsulosin HCl 0.4 MG DAILY 06/04 1000 AC 06/04 PO 0937 Vancomycin HCl 1,000 MG ONCE ONE 06/03 1900 DC 06/03 Dextrose/Water 250 ML IV 06/03 Vancomycin HCl 1,000 MG ONCE 06/03 0000 DC Sodium Chloride 250 ML IV 06/03 2359 Results Last 48 Hrs of Labs/Mics: Laboratory Tests 06/04/17 0350: Anion Gap 14, Estimated GFR 40 L, BUN/Creatinine Ratio 16.5, CBC w Diff NO MAN DIFF REQ, RBC 3.89 L, MCV 91.3, MCH 30.5, MCHC 33.4, RDW 14.4, MPV 10.9 H, Gran % 85.7 H, Lymphocytes % 9.9 L, Monocytes % 4.2, Eosinophils % 0, Basophils % 0.2, Absolute Granulocytes 9.5 H, Absolute Lymphocytes 1.1 L, Absolute Monocytes 0.5, Absolute Eosinophils 0, Absolute Basophils 0 Assessment/Plan Assessment/Plan Assessment: 1. Atrial fibrillation with post operative bradycardia-- resolved 2. Post op hypotension-- resolved 3. Hypertension 4. Hyperlipidemia 5. COPD not on home oxygen 6. Acute kidney injury 7. Anemia Recommendation 1. We can restart metoprolol, Cardizem on home dose given resolving of hypotension and bradycardia 2. Patient was started on doxazosin 4 mg at bedtime which equivalent to terazosin 10 mg at bedtime home medication however was also started on Flomax which synergically would cause hypotension--consider discontinuing either doxazosin or Flomax 3. Patient is on IV fluids running at 125 mL/h for acute kidney injury, monitor in and output closely 4. Consider repeating CBC later this evening given drop in hemoglobin 5. Avoid NSAIDs 6. Guaiac stool 7. Will review with Dr. Hawthorne the possibility of downgrading the patient to telemetry floor since bradycardia and hypotension resolved Continue telemetry? Yes
[2017-06-04 16:00] VITALS: BP 150/70
--- NOTE | 2017-06-04 17:19 | PN- Att Addend ---
Attending Addendum Attending Brief Note Mr. Beavers's bradycardia and hypotension has resolved. He has had a decrement in his renal functional which we are treating with IV fluids and are following his renal function. We should follow-up on this afternoon's laboratory testing to determine the correct dose will need restart his anticoagulation. He has been restarted on his maintenance antihypertensives but still has a mildly elevated blood pressure. We will continue to follow. At this time he is stable enough to be transferred to telemetry.
[2017-06-05] VITALS: BP 148/90
--- NOTE | 2017-06-05 02:15 | Event Note ---
Event Note Event Note: S: Nonsustained vtach with longest 17 beats. Continue vtach episodes 3-8 beats every 15-20 seconds. B: Patient found to be in active afib and bradycardic s/p surgery A/R: Pt restarted on his toprolol xl 150mg AM, and toprolol xl PM. Mg 1.5. Spoke with Dr. Nur who recommended to continue watching the patient. No further metoprolol as per the certified social workers in health care. The patient received 1gm mag @ midnight and getting another 1 gram at 1:45 AM. Vitals remained stable, and pt was asymptomatic at this time.
[2017-06-05 05:45] LABS: ABSOLUTE BASOPHIL COUNT 0 /CUMM (0.0-0.2); ABSOLUTE EOSINOPHIL COUNT 0 /CUMM (0.0-0.7); ABSOLUTE GRANULOCYTE CT 10.6 /CUMM (1.4-6.5); ABSOLUTE LYMPH COUNT 1.9 /CUMM (1.2-3.4); ABSOLUTE MONOCYTE COUNT 1.1 /CUMM (0.10-0.60); BASOPHIL % 0.2 % (0.0-2.0); EOSINOPHIL % 0 % (0-5); GRANULOCYTE % 77.8 % (42.2-75.2); HEMATOCRIT 36.6 % (42-52); MEAN CORPUSCULAR HGB 30.5 PG (27.0-31.0); MEAN CORPUSCULAR HGB CONC 33.8 G/DL (33.0-37.0); MEAN CORPUSCULAR VOLUME 90.1 FL (80.0-94.0); MEAN PLATELET VOLUME 10.6 FL (7.4-10.4); PLATELET COUNT 140 /CUMM (130-400); RBC DISTRIBUTION WIDTH 14.3 % (11.5-14.5); RED BLOOD CELL CT 4.06 /CUMM (4.70-6.10); WHITE BLOOD CELL COUNT 13.6 /CUMM (4.8-10.8)
[2017-06-05 08:00] VITALS: BP 142/80
--- NOTE | 2017-06-05 08:18 | PN- Gen Med ---
See Addendum Assessment/Plan Medical Assessment: 72-year-old gentleman former smoker pmh atrial fibrillation maintained on Xarelto, hypertension, dyslipidemia, GI bleed secondary to duodenal ulcer with positive Helicobacter pylori, POD 0 Right total knee arthroplasty found to be in Afib adn bradycardiac s/p surgery, Also noted to be mildly hypotensive Problem list: -s/p Total knee replacement -Atrial fibrillation with post operative bradycardia -Post op hypotension -EMILY -Nonsustained vtach with longest 17 beats. Continued vtach episodes 3-8 beats every 15-20 seconds. Recommendations -Continue home dose of Cardizem and metoprolol. -Eliquis 2.5mg BID started after discussion with Dr. Salazar yesterday plz check with Cardiology for further reccs -Continue to monitor electrolytes goal K>4 Mg>2 -Disontinue IV fluids Cr WNL -Avoid NSAIDs -Postoperative management and analgesia per orthopedics -Downgrade to TELE -F/U cardiology reccs Problem List: 1. ATRIAL FIBRILATION Subjective Follow-up For: Postoperative bradycardia Subjective: Patient seen and examined. Sitting comfortably. Offers no complaints. he had 17 beat run of Vtach, cardiology following Review of Systems Constitutional: Reports: see HPI. Objective Last 24 Hrs of Vital Signs/I&O Vital Signs Date Time Temp Pulse Resp B/P B/P Pulse O2 O2 Flow FiO2 Mean Ox Delivery Rate 06/05 1037 Room Air Room Air 06/05 0920 96 142/64 / 0800 98.0 85 20 142/80 94 Room Air Room Air 03/ 0000 94 Room Air / 0000 98.9 88 20 148/90 94 Room Air 06/04 2033 94 20 178/80 / 2000 92 Room Air 06/04 1600 98.1 90 24 150/70 92 Room Air Room Air 06/04 1600 92 Room Air 06/04 1237 79 172/72 03/ 1200 95 Room Air Intake & Output 06/05 1600 /02 0800 03/ 0000 Intake Total 240 1500 Output Total 2250 2750 Balance -2009 -1250 Intake, IV 700 Intake, Oral 240 800 Number 0 Bowel Movements Output, Urine 2250 2750 Patient 187 lb Weight Physical Exam General Appearance: Alert, Oriented X3, Cooperative, No Acute Distress HEENT: Atraumatic Neck: Supple Cardiovascular: irregular Lungs: Clear to Auscultation Abdomen: Normal Bowel Sounds, Soft, No Tenderness Neurological: Normal Speech Current Medications: Current Medications Sig/Rob Start time Last Medication Dose Route Stop Time Status Admin Apixaban 5 MG BID 06/04 2199 DC PO Apixaban 2.5 MG BID 06/04 2199 AC 06/05 PO 0920 Apixaban 5 MG BID 06/03 2199 DC 06/04 PO 0937 Atorvastatin Calcium 20 MG 1700 06/03 1700 AC 06/04 PO 1659 Dextrose/Lactated 1,000 ML Q13H 06/04 0445 DC 06/04 Ringer's IV 2233 Diltiazem HCl 180 MG DAILY 06/03 1000 AC 06/05 PO 0920 Docusate Sodium 100 MG DAILY NEEDED PRN 06/03 1500 AC PO Doxazosin Mesylate 4 MG AT BEDTIME 06/05 2199 AC PO Magnesium Chloride 128 MG AT BEDTIME 06/03 2200 AC 06/04 PO 2033 Magnesium Sulfate 1 GM ONCE ONE 06/05 0145 DC 06/05 Dextrose/Water 100 ML IV 06/05 0544 0145 Magnesium Sulfate 1 GM ONCE ONE 06/05 0015 DC 06/05 Dextrose/Water 100 ML IV 06/05 0414 0011 Melatonin 5 MG AT BEDTIME 06/04 220 AC 06/04 PO 2033 Metoprolol Succinate 50 MG AT BEDTIME 06/04 220 AC 06/04 PO 2033 Metoprolol Succinate 100 MG QAM 06/04 1000 AC 06/05 PO 0920 Morphine Sulfate 2 MG Q3P PRN 06/03 1500 AC IV Morphine Sulfate 4 MG Q3P PRN 06/03 1500 AC IV Omeprazole 20 MG DAILY 06/03 1000 AC 06/05 PO 0920 Ondansetron HCl 4 MG Q6P PRN 06/03 1500 AC IV Oxycodone/ 1 TAB Q4P PRN 06/03 1500 AC Acetaminophen PO Oxycodone/ 2 TAB Q4P PRN 06/03 1500 AC Acetaminophen PO Polyethylene Glycol 17 GM DAILY NEEDED PRN 06/03 1500 AC PO Senna/Docusate Sodium 2 TAB AT BEDTIME NEED.. 06/03 1500 AC PO Last 24 Hrs of Labs/Mics: Laboratory Tests 06/05/17627: Magnesium Cancelled 06/05/17439: Anion Gap 14, Estimated GFR > 60, BUN/Creatinine Ratio 20.9, Magnesium 2.2, CBC w Diff NO MAN DIFF REQ, RBC 4.06 L, MCV 90.1, MCH 30.5, MCHC 33.8, RDW 14.3, MPV 10.6 H, Gran % 77.8 H, Lymphocytes % 13.9 L, Monocytes % 8.1, Eosinophils % 0, Basophils % 0.2, Absolute Granulocytes 10.6 H, Absolute Lymphocytes 1.9, Absolute Monocytes 1.1 H, Absolute Eosinophils 0, Absolute Basophils 0 06/04/17 2307: Anion Gap 11, Estimated GFR 54 L, Glucose 191 H, Calcium 9.3, Phosphorus 2.6, Magnesium 1.5 L, Total Bilirubin 0.5, AST 25, ALT 31, Albumin 3.6 06/04/17 1525: Anion Gap 12, Estimated GFR 42 L, BUN/Creatinine Ratio 15.6
[2017-06-05] MEDS ORDERED: PERCOCET 5-3251 EACH PO (10:52)
[2017-06-05] MEDS ORDERED: SENNA PLUS TAB1 EACH PO (10:52)
[2017-06-05] MEDS ORDERED: ELIQUIS2.5 M1 PO (10:52)
[2017-06-05 11:27] VITALS: BP 174/80
--- NOTE | 2017-06-05 12:04 | RADIOLOGY REPORT ---
EXAMINATION: XR KNEE, RIGHT CLINICAL INFORMATION: Status post right total knee arthroplasty. COMPARISON: None TECHNIQUE: Two views of the right knee. FINDINGS: The patient is status post total right knee arthroplasty with the prosthetic components well seated. No evidence of prosthetic failure or upper sioux bone fracture. Postoperative changes are seen in the soft tissues with soft tissue swelling and emphysema, small suprapatellar effusion, and midline cutaneous suture line seen. Arteriovascular calcifications seen in the popliteal fossa. IMPRESSION: Anatomic alignment status post total right knee arthroplasty. No evidence of hardware failure or upper sioux bone fracture.
--- NOTE | 2017-06-05 12:28 | PN- Cardiology ---
Subjective Subjective: Clinical stable. Awake and alert. Minimally confused. Blood pressure a bit on the high side. Heart rate controlled. Objective Vital Signs and I&Os Vital Signs Date Time Temp Pulse Resp B/P B/P Pulse O2 O2 Flow FiO2 Mean Ox Delivery Rate 06/05 1127 98.5 95 20 174/80 92 Room Air 06/05 1037 Room Air Room Air 06/05 0920 96 142/64 06/05 0800 98.0 85 20 142/80 94 Room Air Room Air 06/05 0000 94 Room Air 06/05 0000 98.9 88 20 148/90 94 Room Air 06/04 2033 94 20 178/80 06/04 2000 92 Room Air 06/04 1600 98.1 90 24 150/70 92 Room Air Room Air 06/04 1600 92 Room Air 06/04 1237 79 172/72 Intake & Output 06/05 1600 06/05 0800 06/05 0000 06/04 1600 06/04 0800 06/04 0000 Intake Total 240 1500 1419 1150 1211 Output Total 2250 2750 1900 450 70 [facility] -2009 -1250 -429 370 5179 Intake, IV 861 821 6589 881 Intake, Oral 240 800 600 50 330 Number 0 Bowel Movements Output, Urine 2250 2750 1900 450 70 Patient 187 lb Weight Physical Exam: General: no acute distress, awake and alert Cardiovascular: Irregular S1, S2, 1/6 systolic murmur Lungs: Clear bilaterally Abdomen: soft, positive bowel sounds LE: Postop right knee, peripheral pulses palpable, trace pedal edema Current Medications: Current Medications Sig/Rob Start time Last Medication Dose Route Stop Time Status Admin Apixaban 5 MG BID 06/04 2199 DC PO Apixaban 2.5 MG BID 06/04 2199 AC 06/05 PO 0920 Apixaban 5 MG BID 06/03 2199 DC 06/04 PO 0937 Atorvastatin Calcium 20 MG 1700 06/03 1700 AC 06/04 PO 1659 Dextrose/Lactated 1,000 ML Q13H 06/04 0445 DC 06/04 Ringer's IV 2233 Diltiazem HCl 180 MG DAILY 06/03 1000 AC 06/05 PO 0920 Docusate Sodium 100 MG DAILY NEEDED PRN 06/03 1500 AC PO Doxazosin Mesylate 4 MG AT BEDTIME 06/05 2199 AC PO Magnesium Chloride 128 MG AT BEDTIME 06/03 2199 AC 06/04 PO 2032 Magnesium Sulfate 1 GM ONCE ONE 06/05 0145 DC 06/05 Dextrose/Water 100 ML IV 06/05 0544 0145 Magnesium Sulfate 1 GM ONCE ONE 06/055 DC 06/05 Dextrose/Water 100 ML IV 06/05 0414 0011 Melatonin 5 MG AT BEDTIME 06/04 2199 AC 06/04 PO 203 Metoprolol Succinate 50 MG AT BEDTIME 06/04 220 AC 06/04 PO 2032 Metoprolol Succinate 100 MG QAM 06/04 1000 AC 06/05 PO 0920 Morphine Sulfate 2 MG Q3P PRN 06/03 1500 AC IV Morphine Sulfate 4 MG Q3P PRN 06/03 1500 AC IV Omeprazole 20 MG DAILY 06/03 1000 AC 06/05 PO 0920 Ondansetron HCl 4 MG Q6P PRN 06/03 1500 AC IV Oxycodone/ 1 TAB Q4P PRN 06/03 1500 AC Acetaminophen PO Oxycodone/ 2 TAB Q4P PRN 06/03 1500 AC Acetaminophen PO Polyethylene Glycol 17 GM DAILY NEEDED PRN 06/03 1500 AC PO Senna/Docusate Sodium 2 TAB AT BEDTIME NEED.. 06/03 1500 AC PO Results Last 48 Hrs of Labs/Mics: Laboratory Tests 06/05/17 0628: Magnesium Cancelled 06/05/17 0440: Anion Gap 14, Estimated GFR > 60, BUN/Creatinine Ratio 20.9, Magnesium 2.2, CBC w Diff NO MAN DIFF REQ, RBC 4.06 L, MCV 90.1, MCH 30.5, MCHC 33.8, RDW 14.3, MPV 10.6 H, Gran % 77.8 H, Lymphocytes % 13.9 L, Monocytes % 8.1, Eosinophils % 0, Basophils % 0.2, Absolute Granulocytes 10.6 H, Absolute Lymphocytes 1.9, Absolute Monocytes 1.1 H, Absolute Eosinophils 0, Absolute Basophils 0 06/04/17 2307: Anion Gap 11, Estimated GFR 54 L, Glucose 191 H, Calcium 9.3, Phosphorus 2.6, Magnesium 1.5 L, Total Bilirubin 0.5, AST 25, ALT 31, Albumin 3.6 06/04/17 1525: Anion Gap 12, Estimated GFR 42 L, BUN/Creatinine Ratio 15.6 06/04/17 0350: Anion Gap 14, Estimated GFR 40 L, BUN/Creatinine Ratio 16.5, CBC w Diff NO MAN DIFF REQ, RBC 3.89 L, MCV 91.3, MCH 30.5, MCHC 33.4, RDW 14.4, MPV 10.9 H, Gran % 85.7 H, Lymphocytes % 9.9 L, Monocytes % 4.2, Eosinophils % 0, Basophils % 0.2, Absolute Granulocytes 9.5 H, Absolute Lymphocytes 1.1 L, Absolute Monocytes 0.5, Absolute Eosinophils 0, Absolute Basophils 0 Microbiology 06/03 145 UPPER RESP: Surveillance Culture - COMP 06/03 1449 GI: Surveillance Culture - COMP Assessment/Plan Assessment/Plan Assessment: 1. Atrial fibrillation with post operative bradycardia-- resolved 2. Post op hypotension-- resolved 3. Hypertension 4. Hyperlipidemia 5. COPD not on home oxygen 6. Acute kidney injury-resolved 7. Anemia 8. Hypomagnesemia-resolved Recommendation 1. Continue current medication regimen 2. Transferred to [address] [place], [place] [address]etry 3. Encourage by mouth intake 4. Follow-up labs in the morning 5. Avoid NSAIDs 6. Out of bed as tolerated, PT evaluation, monitor heart rate and blood pressure with ambulation and physical therapy. 7. If the patient remains stable overnight consider discharge home tomorrow. Continue telemetry? Yes
--- NOTE | 2017-06-05 14:01 | PN- Orthopedic ---
See Addendum Subjective Subjective: minimal pain, no complaints, no fever, no cp, no palp, no sob. downgraded to tele. Objective Vital Signs and I&Os Vital Signs Date Time Temp Pulse Resp B/P B/P Pulse O2 O2 Flow FiO2 Mean Ox Delivery Rate 06/05 1127 98.5 95 20 174/80 92 Room Air 06/05 1037 Room Air Room Air 06/05 0920 96 142/64 06/05 0800 98.0 85 20 142/80 94 Room Air Room Air 06/05 0000 94 Room Air 06/05 0000 98.9 88 20 148/90 94 Room Air 06/04 2033 94 20 178/80 06/04 2000 92 Room Air 06/04 1600 98.1 90 24 150/70 92 Room Air Room Air 06/04 1600 92 Room Air Intake & Output 06/05 1600 06/05 0800 06/05 0000 06/04 1600 06/04 0800 06/04 0000 Intake Total 345 550 6806 1419 1150 1211 Output Total 800 2250 2750 1900 450 70 Balance -300 -2009 -1250 -730 042 7894 Intake, IV 047 453 9964 881 Intake, Oral 500 240 800 600 50 330 Number 0 Bowel Movements Output, Urine 800 2250 2750 1900 450 70 Patient 187 lb Weight Physical Exam: Well-developed well-nourished no apparent distress. HEENT: Atraumatic, extraocular motion intact Neck: Supple, no lymphadenopathy Respiratory: No respiratory distress Extremities: No edema RIGHT lower extremity dressing in place, Incision line is clean dry and intact with minimal bloody drainage. No signs of infection. Mild joint effusion Range of motion is 0-80. Compression wrap in place. ALPS in place Neurovascularly intact distally Bilateral calves are supple, nontender. Neuro: Alert and oriented x3 Psych: Mood affect normal, normal memory normal judgment. Skin: Warm and dry, no rash on exposed skin Results Last 48 Hours of Labs: Laboratory Tests 06/05 06/05 06/04 0628 0440 2307 Chemistry Sodium (137 - 145 mmol/L) 143 141 Potassium (3.5 - 5.1 mmol/L) 3.8 3.9 Chloride (98 - 107 mmol/L) 102 103 Carbon Dioxide (22 - 30 mmol/L) 28 27 Anion Gap (5 - 16) 14 11 BUN (9 - 20 mg/dL) 23 H 26 H Creatinine (0.7 - 1.2 mg/dL) 1.1 1.3 H Estimated GFR (>60 ml/min) > 60 54 L BUN/Creatinine Ratio (7 - 25 %) 20.9 Glucose (65 - 99 mg/dL) 191 H Calcium (8.4 - 10.2 mg/dL) 9.3 Phosphorus (2.5 - 4.5 mg/dL) 2.6 Magnesium (1.6 - 2.3 mg/dL) Cancelled 2.2 1.5 L Total Bilirubin (0.2 - 1.3 mg/dL) 0.5 AST (17 - 59 U/L) 25 ALT (21 - 72 U/L) 31 Albumin (3.5 - 5.0 g/dL) 3.6 Hematology CBC w Diff NO MAN DIFF REQ WBC (4.8 - 10.8 /CUMM) 13.6 H RBC (4.70 - 6.10 /CUMM) 4.06 L Hgb (14.0 - 18.0 G/DL) 12.4 L Hct (42 - 52 %) 36.6 L MCV (80.0 - 94.0 FL) 90.1 MCH (27.0 - 31.0 PG) 30.5 MCHC (33.0 - 37.0 G/DL) 33.8 RDW (11.5 - 14.5 %) 14.3 Plt Count (130 - 400 /CUMM) 140 MPV (7.4 - 10.4 FL) 10.6 H Gran % (42.2 - 75.2 %) 77.8 H Lymphocytes % (20.5 - 51.1 %) 13.9 L Monocytes % (1.7 - 9.3 %) 8.1 Eosinophils % (0 - 5 %) 0 Basophils % (0.0 - 2.0 %) 0.2 Absolute Granulocytes (1.4 - 6.5 /CUMM) 10.6 H Absolute Lymphocytes (1.2 - 3.4 /CUMM) 1.9 Absolute Monocytes (0.10 - 0.60 /CUMM) 1.1 H Absolute Eosinophils (0.0 - 0.7 /CUMM) 0 Absolute Basophils (0.0 - 0.2 /CUMM) 0 06/04 06/04 1525 0350 Chemistry Sodium (137 - 145 mmol/L) 141 138 Potassium (3.5 - 5.1 mmol/L) 4.1 4.9 Chloride (98 - 107 mmol/L) 104 104 Carbon Dioxide (22 - 30 mmol/L) 25 20 L Anion Gap (5 - 16) 12 14 BUN (9 - 20 mg/dL) 25 H 28 H Creatinine (0.7 - 1.2 mg/dL) 1.6 H 1.7 H Estimated GFR (>60 ml/min) 42 L 40 L BUN/Creatinine Ratio (7 - 25 %) 15.6 16.5 Hematology CBC w Diff NO MAN DIFF REQ WBC (4.8 - 10.8 /CUMM) 11.1 H RBC (4.70 - 6.10 /CUMM) 3.89 L Hgb (14.0 - 18.0 G/DL) 11.9 L Hct (42 - 52 %) 35.5 L MCV (80.0 - 94.0 FL) 91.3 MCH (27.0 - 31.0 PG) 30.5 MCHC (33.0 - 37.0 G/DL) 33.4 RDW (11.5 - 14.5 %) 14.4 Plt Count (130 - 400 /CUMM) 147 MPV (7.4 - 10.4 FL) 10.9 H Gran % (42.2 - 75.2 %) 85.7 H Lymphocytes % (20.5 - 51.1 %) 9.9 L Monocytes % (1.7 - 9.3 %) 4.2 Eosinophils % (0 - 5 %) 0 Basophils % (0.0 - 2.0 %) 0.2 Absolute Granulocytes (1.4 - 6.5 /CUMM) 9.5 H Absolute Lymphocytes (1.2 - 3.4 /CUMM) 1.1 L Absolute Monocytes (0.10 - 0.60 /CUMM) 0.5 Absolute Eosinophils (0.0 - 0.7 /CUMM) 0 Absolute Basophils (0.0 - 0.2 /CUMM) 0 Assessment/Plan Assessment/Plan Postop day number 2 status post right total knee arthroplasty, complicated by atrial fibrillation, bradycardia, acute kidney injury Orthopedically stable, dressing changed, On-Q pump removed Perioperative antibiotics completed. Pain medication as needed. Out of bed Physical therapy, weightbearing as tolerated Discontinue Reed catheter Eliquis for DVT prophylaxis/A. fib ALPS for DVT prophylaxis Regular home meds EMILY resolved Dressing change daily, dry sterile dressing applied today Appreciate cardiology and medicine input Anticipate discharge home with VNA service 1-2 days depending upon how he does with physical therapy and telemetry monitoring overnight Core Measures Venous Thromboembolism VTE Risk Factors Surgery No Mechanical VTE Prophylaxis d/t N/A MechProphylax Ordered No VTE Pharm Prophylaxis d/t NA PharmProphylax ordered
[2017-06-05 14:18] VITALS: BP 138/68
[2017-06-06 00:28] VITALS: BP 140/72
[2017-06-06 00:40] VITALS: BP 142/70
[2017-06-06 06:55] VITALS: BP 156/82
[2017-06-06 08:40] LABS: ABSOLUTE BASOPHIL COUNT 0 /CUMM (0.0-0.2); ABSOLUTE EOSINOPHIL COUNT 0.1 /CUMM (0.0-0.7); ABSOLUTE GRANULOCYTE CT 7.5 /CUMM (1.4-6.5); ABSOLUTE LYMPH COUNT 3.1 /CUMM (1.2-3.4); BASOPHIL % 0.3 % (0.0-2.0); EOSINOPHIL % 0.8 % (0-5); GRANULOCYTE % 63.9 % (42.2-75.2); HEMATOCRIT 34.5 % (42-52); MEAN CORPUSCULAR HGB 31.2 PG (27.0-31.0); MEAN CORPUSCULAR HGB CONC 34.7 G/DL (33.0-37.0); MEAN CORPUSCULAR VOLUME 89.9 FL (80.0-94.0); MEAN PLATELET VOLUME 10.6 FL (7.4-10.4); PLATELET COUNT 140 /CUMM (130-400); RBC DISTRIBUTION WIDTH 14.5 % (11.5-14.5); RED BLOOD CELL CT 3.83 /CUMM (4.70-6.10); WHITE BLOOD CELL COUNT 11.8 /CUMM (4.8-10.8)
--- NOTE | 2017-06-06 11:43 | PN- Att Addend ---
Attending Addendum Attending Brief Note Mr. Beavers was interviewed and examined. His EMR was reviewed. He stated that he had had physical therapy earlier today and had no difficulties. He denies chest pain, lightheadedness, and palpitations. He is afebrile. He is mildly tachycardic and is in atrial fibrillation. Systolic blood pressure is also mildly elevated at approximately 150. He is in no acute distress. Pulmonary exam is benign. As noted above heart rate is mildly increased and his rhythm is irregularly irregular. His abdomen and extremities are benign. WBC has decreased from yesterday but is still mildly elevated. H&H is stable as are his electrolytes and renal function. Mr. Beavers has recovered from his bradycardia, hypotension, and EMILY. He is now on his home maintenance medications. We will continue to monitor his heart rate and should it remain elevated we may need to adjust his medications. Physical therapy, postoperative management, and analgesia will be managed by orthopedics.
--- NOTE | 2017-06-06 12:10 | PN- Cardiology ---
Subjective Subjective: The patient reports that he is feeling well from a cardiac standpoint. No chest pain. No shortness of breath. No palpitations. No diaphoresis. Occasional brief episodes of mildly elevated ventricular rate noted on telemetry Objective Vital Signs and I&Os Vital Signs Date Time Temp Pulse Resp B/P B/P Pulse O2 O2 Flow FiO2 Mean Ox Delivery Rate 06/06 0940 93 156/82 06/06 0655 98.7 93 18 156/82 94 Room Air 06/06 0040 97.6 91 20 142/70 93 Room Air 06/06 0028 99.6 107 20 140/72 92 Room Air 06/05 2115 87 140/72 06/05 1600 Room Air 06/05 1418 99.2 94 20 138/68 94 Room Air Intake & Output 06/06 1600 06/06 0800 06/06 0000 06/05 1600 06/05 0800 06/05 0000 Intake Total 440 390 127 8695 Output Total 630 1150 2250 2750 Balance -190 -250 -2009 -1250 Intake, IV 700 Intake, Oral 440 900 240 800 Number 1 0 Bowel Movements Output, Urine 630 1150 2250 2750 Patient 187 lb Weight Physical Exam: Gen: NAD HEENT: normal Lungs: clear to auscultation, normal resp. effort Heart: RRR, Irregular S1, S2, 1 out of 6 systolic murmur Abdomen: Soft, nontender, no masses Extremities: No clubbing, cyanosis, or edema. Neuro: Alert and oriented x 3, cranial nerves intact Current Medications: Current Medications Sig/Rob Start time Last Medication Dose Route Stop Time Status Admin Acetaminophen 500 MG Q4-6 PRN PRN 06/05 1600 AC 06/06 PO 0943 Apixaban 5 MG BID 06/05 2199 AC 06/06 PO 0937 Apixaban 2.5 MG BID 06/04 2200 DC 06/05 PO 0920 Atorvastatin Calcium 20 MG 1700 06/03 1700 AC 06/05 PO 1556 Diltiazem HCl 180 MG DAILY 06/03 1000 AC 06/06 PO 0933 Docusate Sodium 100 MG BID 06/05 2199 AC 06/06 PO 0940 Docusate Sodium 100 MG DAILY NEEDED PRN 06/03 1500 DC PO Doxazosin Mesylate 4 MG AT BEDTIME 06/05 2199 AC 06/05 PO 2115 Magnesium Chloride 128 MG AT BEDTIME 06/03 2199 AC 06/05 PO 2114 Melatonin 5 MG AT BEDTIME 06/04 2199 AC 06/04 PO 2032 Metoprolol Succinate 50 MG AT BEDTIME 06/04 2199 AC 06/05 PO 2114 Metoprolol Succinate 100 MG QAM 06/04 999 AC 06/06 PO 0940 Morphine Sulfate 2 MG Q3P PRN 06/03 1500 AC IV Morphine Sulfate 4 MG Q3P PRN 06/03 1500 AC IV Omeprazole 20 MG DAILY 06/03 1000 AC 06/06 PO 0940 Ondansetron HCl 4 MG Q6P PRN 06/03 1500 AC IV Oxycodone/ 1 TAB Q4P PRN 06/03 1500 AC 06/06 Acetaminophen PO 0656 Oxycodone/ 2 TAB Q4P PRN 06/03 1500 AC Acetaminophen PO Polyethylene Glycol 17 GM DAILY NEEDED PRN 06/03 1500 AC PO Potassium Chloride 40 MEQ ONCE ONE 06/05 1415 DC 06/05 PO 06/05 1416 1425 Senna/Docusate Sodium 2 TAB AT BEDTIME NEED.. 06/03 1500 AC PO Results Last 48 Hrs of Labs/Mics: Laboratory Tests 06/06/17 06: Anion Gap 9, Estimated GFR > 60, BUN/Creatinine Ratio 20.9, CBC w Diff NO MAN DIFF REQ, RBC 3.83 L, MCV 89.9, MCH 31.2 H, MCHC 34.7, RDW 14.5, MPV 10.6 H, Gran % 63.9, Lymphocytes % 26.3, Monocytes % 8.7, Eosinophils % 0.8, Basophils % 0.3, Absolute Granulocytes 7.5 H, Absolute Lymphocytes 3.1, Absolute Monocytes 1.0 H, Absolute Eosinophils 0.1, Absolute Basophils 0 06/05/17 0628: Magnesium Cancelled 06/05/17 0440: Anion Gap 14, Estimated GFR > 60, BUN/Creatinine Ratio 20.9, Magnesium 2.2, CBC w Diff NO MAN DIFF REQ, RBC 4.06 L, MCV 90.1, MCH 30.5, MCHC 33.8, RDW 14.3, MPV 10.6 H, Gran % 77.8 H, Lymphocytes % 13.9 L, Monocytes % 8.1, Eosinophils % 0, Basophils % 0.2, Absolute Granulocytes 10.6 H, Absolute Lymphocytes 1.9, Absolute Monocytes 1.1 H, Absolute Eosinophils 0, Absolute Basophils 0 06/04/17 2307: Anion Gap 11, Estimated GFR 54 L, Glucose 191 H, Calcium 9.3, Phosphorus 2.6, Magnesium 1.5 L, Total Bilirubin 0.5, AST 25, ALT 31, Albumin 3.6 06/04/17 1525: Anion Gap 12, Estimated GFR 42 L, BUN/Creatinine Ratio 15.6 Assessment/Plan Assessment/Plan Assessment: 1. Atrial fibrillation with post operative bradycardia-- resolved 2. Post op hypotension-- resolved 3. Hypertension 4. Hyperlipidemia 5. COPD not on home oxygen 6. Acute kidney injury-resolved 7. Anemia 8. Hypomagnesemia-resolved Plan: * Continue current cardiac medications per * Continue to monitor ventricular rate on telemetry, however I would recommend holding off on any medication changes at this time. Continue telemetry? Yes
--- NOTE | 2017-06-06 12:32 | PN- Orthopedic ---
See Addendum Subjective Subjective: Feels well. Pain controlled. Denies c/p, sob, palpitation. Ambulating with PT who is recommending home PT. He occasional has brief episodes of mildly elevated ventricular rate noted on telemetry Objective Vital Signs and I&Os Vital Signs Date Time Temp Pulse Resp B/P B/P Pulse O2 O2 Flow FiO2 Mean Ox Delivery Rate 06/06 1526 98.6 96 18 144/66 95 06/06 0940 93 156/82 06/06 0655 98.7 93 18 156/82 94 Room Air 06/06 0040 97.6 91 20 142/70 93 Room Air 06/06 0028 99.6 107 20 140/72 92 Room Air 06/05 2115 87 140/72 06/05 1600 Room Air Intake & Output 06/06 1600 06/06 0800 06/06 0000 06/05 1600 06/05 0800 06/05 0000 Intake Total 600 440 519 517 9089 Output Total 539 028 3153 2250 2750 Balance -200 -190 -250 -2010 -1250 Intake, IV 700 Intake, Oral 600 440 900 240 800 Number 1 0 Bowel Movements Output, Urine 986 491 3273 2250 2750 Patient 187 lb Weight Physical Exam: Gen - NAD Lungs - CTAB Heart - irregular S1S2 Abdomen - soft, nontender, no masses Extremities: Right knee dressing c/d/i, incision healing well with mild surrouding edema, nvi, no edema or calf tenderness B/L Current Medications: Current Medications Sig/Rob Start time Last Medication Dose Route Stop Time Status Admin Acetaminophen 500 MG Q4-6 PRN PRN 06/05 1600 AC 06/06 PO 0943 Apixaban 5 MG BID 06/05 2199 AC 06/06 PO 0937 Apixaban 2.5 MG BID 06/04 2200 DC 06/05 PO 0920 Atorvastatin Calcium 20 MG 1700 06/03 1700 AC 06/05 PO 1556 Diltiazem HCl 180 MG DAILY 06/03 1000 AC 06/06 PO 0933 Docusate Sodium 100 MG BID 06/05 2199 AC 06/06 PO 0940 Doxazosin Mesylate 4 MG AT BEDTIME 06/05 2199 AC 06/05 PO 2114 Magnesium Chloride 128 MG AT BEDTIME 06/03 2199 AC 06/05 PO 211 Melatonin 5 MG AT BEDTIME 06/04 2199 AC 06/04 PO 2033 Metoprolol Succinate 50 MG AT BEDTIME 06/04 220 AC 06/05 PO 2115 Metoprolol Succinate 100 MG QAM 06/04 1000 AC 06/06 PO 0940 Morphine Sulfate 2 MG Q3P PRN 06/03 1500 AC IV Morphine Sulfate 4 MG Q3P PRN 06/03 1500 AC IV Omeprazole 20 MG DAILY 06/03 1000 AC 06/06 PO 0940 Ondansetron HCl 4 MG Q6P PRN 06/03 1500 AC IV Oxycodone/ 1 TAB Q4P PRN 06/03 1500 AC 06/06 Acetaminophen PO 0656 Oxycodone/ 2 TAB Q4P PRN 06/03 1500 AC Acetaminophen PO Polyethylene Glycol 17 GM DAILY NEEDED PRN 06/03 1500 AC PO Senna/Docusate Sodium 2 TAB AT BEDTIME NEED.. 06/03 1500 AC PO Results Last 48 Hours of Labs: Laboratory Tests 06/06 06/05 0623 0628 Chemistry Sodium (137 - 145 mmol/L) 140 Potassium (3.5 - 5.1 mmol/L) 3.9 Chloride (98 - 107 mmol/L) 103 Carbon Dioxide (22 - 30 mmol/L) 28 Anion Gap (5 - 16) 9 BUN (9 - 20 mg/dL) 23 H Creatinine (0.7 - 1.2 mg/dL) 1.1 Estimated GFR (>60 ml/min) > 60 BUN/Creatinine Ratio (7 - 25 %) 20.9 Magnesium Cancelled Hematology CBC w Diff NO MAN DIFF REQ WBC (4.8 - 10.8 /CUMM) 11.8 H RBC (4.70 - 6.10 /CUMM) 3.83 L Hgb (14.0 - 18.0 G/DL) 12.0 L Hct (42 - 52 %) 34.5 L MCV (80.0 - 94.0 FL) 89.9 MCH (27.0 - 31.0 PG) 31.2 H MCHC (33.0 - 37.0 G/DL) 34.7 RDW (11.5 - 14.5 %) 14.5 Plt Count (130 - 400 /CUMM) 140 MPV (7.4 - 10.4 FL) 10.6 H Gran % (42.2 - 75.2 %) 63.9 Lymphocytes % (20.5 - 51.1 %) 26.3 Monocytes % (1.7 - 9.3 %) 8.7 Eosinophils % (0 - 5 %) 0.8 Basophils % (0.0 - 2.0 %) 0.3 Absolute Granulocytes (1.4 - 6.5 /CUMM) 7.5 H Absolute Lymphocytes (1.2 - 3.4 /CUMM) 3.1 Absolute Monocytes (0.10 - 0.60 /CUMM) 1.0 H Absolute Eosinophils (0.0 - 0.7 /CUMM) 0.1 Absolute Basophils (0.0 - 0.2 /CUMM) 0 06/05 06/04 0440 2307 Chemistry Sodium (137 - 145 mmol/L) 143 141 Potassium (3.5 - 5.1 mmol/L) 3.8 3.9 Chloride (98 - 107 mmol/L) 102 103 Carbon Dioxide (22 - 30 mmol/L) 28 27 Anion Gap (5 - 16) 14 11 BUN (9 - 20 mg/dL) 23 H 26 H Creatinine (0.7 - 1.2 mg/dL) 1.1 1.3 H Estimated GFR (>60 ml/min) > 60 54 L BUN/Creatinine Ratio (7 - 25 %) 20.9 Glucose (65 - 99 mg/dL) 191 H Calcium (8.4 - 10.2 mg/dL) 9.3 Phosphorus (2.5 - 4.5 mg/dL) 2.6 Magnesium (1.6 - 2.3 mg/dL) 2.2 1.5 L Total Bilirubin (0.2 - 1.3 mg/dL) 0.5 AST (17 - 59 U/L) 25 ALT (21 - 72 U/L) 31 Albumin (3.5 - 5.0 g/dL) 3.6 Hematology CBC w Diff NO MAN DIFF REQ WBC (4.8 - 10.8 /CUMM) 13.6 H RBC (4.70 - 6.10 /CUMM) 4.06 L Hgb (14.0 - 18.0 G/DL) 12.4 L Hct (42 - 52 %) 36.6 L MCV (80.0 - 94.0 FL) 90.1 MCH (27.0 - 31.0 PG) 30.5 MCHC (33.0 - 37.0 G/DL) 33.8 RDW (11.5 - 14.5 %) 14.3 Plt Count (130 - 400 /CUMM) 140 MPV (7.4 - 10.4 FL) 10.6 H Gran % (42.2 - 75.2 %) 77.8 H Lymphocytes % (20.5 - 51.1 %) 13.9 L Monocytes % (1.7 - 9.3 %) 8.1 Eosinophils % (0 - 5 %) 0 Basophils % (0.0 - 2.0 %) 0.2 Absolute Granulocytes (1.4 - 6.5 /CUMM) 10.6 H Absolute Lymphocytes (1.2 - 3.4 /CUMM) 1.9 Absolute Monocytes (0.10 - 0.60 /CUMM) 1.1 H Absolute Eosinophils (0.0 - 0.7 /CUMM) 0 Absolute Basophils (0.0 - 0.2 /CUMM) 0 Assessment/Plan Assessment/Plan 76 M POD 3 s/p R TKR, complicated by atrial fibrillation with bradycardia, resolved and acute kidney injury, resolved and hypomagnesemia, resolved Cont tele Reg diet OOB PT, WBAT Pain medication prn Eliquis 5 bid for DVT prophylaxis/A. fib GI ppx on board Home meds on board Bowel regimen on board Cont dry dressing changes daily Appreciate cardiology and medicine involvement Anticipate discharge home with [facility] tomorrow Will d/w Dr. Andrea Core Measures Venous Thromboembolism VTE Risk Factors Surgery No Mechanical VTE Prophylaxis d/t N/A MechProphylax Ordered No VTE Pharm Prophylaxis d/t NA PharmProphylax ordered
[2017-06-06 15:26] VITALS: BP 144/66
[2017-06-06 23:00] VITALS: BP 158/98
[2017-06-07 06:00] VITALS: BP 158/78
--- NOTE | 2017-06-07 07:59 | PN- Orthopedic ---
See Addendum Subjective Subjective: PT IN BED, NO COMPLAINTS. PAIN COMTROLLED WITH MEDICATION, PAIN INCREASES WHEN BENDING HIS RIGHT KNEE. WORKING WITH PHYSICAL THERAPY, WAS ABLE TO DO STAIRS YESTERDAY. DENIES CP/SOB. TOLERATING REG DIET. BM YESTERDAY. VOIDING. Objective Vital Signs and I&Os Vital Signs Date Time Temp Pulse Resp B/P B/P Pulse O2 O2 Flow FiO2 Mean Ox Delivery Rate 06/07 06 97.4 98 18 158/78 96 06/06 2300 98.4 90 18 158/98 94 06/06 2108 122 06/06 1526 98.6 96 18 144/66 95 06/06 0940 93 156/82 Intake & Output 06/07 0806/07 0000 06/06 1600 06/06 0806/06 0000 06/05 1600 Intake Total 600 600 440 900 Output Total 350 026 795 2917 Balance 250 -200 -190 -250 Intake, Oral 600 600 440 900 Number 1 Bowel Movements Output, Urine 350 193 496 1878 Patient 187 lb Weight Physical Exam: GEN- NAD RESP- CLEAR CARDIO-RRR ABD- SOFT NONTENDER EXT- RIGHT KNEE WITH ABBIE IN PLACE, NO DRAINAGE FROM WOUND. SWELLING WITH APPROPRIATE CALF TENDERNESS. DISTAL SENSORY AND MOTOR FUNCTION INTACT. 1+PT RIGHT PULSE Current Medications: Current Medications Sig/Rob Start time Last Medication Dose Route Stop Time Status Admin Acetaminophen 500 MG Q4-6 PRN PRN 06/05 1600 AC 06/06 PO 0943 Apixaban 5 MG BID 06/05 2200 AC 06/06 PO 210 Atorvastatin Calcium 20 MG 1700 06/03 1700 AC 06/06 PO 1542 Diltiazem HCl 180 MG DAILY 06/03 1000 AC 06/06 PO 0933 Docusate Sodium 100 MG BID 06/05 2200 AC 06/06 PO 2107 Doxazosin Mesylate 4 MG AT BEDTIME 06/05 2200 AC 06/06 PO 2107 Magnesium Chloride 128 MG AT BEDTIME 06/03 2199 AC 06/06 PO 2107 Melatonin 5 MG AT BEDTIME 06/04 2200 AC 06/04 PO 203 Metoprolol Succinate 50 MG AT BEDTIME 06/04 2200 AC 06/06 PO 210 Metoprolol Succinate 100 MG QAM 06/04 1000 AC 06/06 PO 0940 Morphine Sulfate 2 MG Q3P PRN 06/03 1500 AC IV Morphine Sulfate 4 MG Q3P PRN 06/03 1500 AC IV Omeprazole 20 MG DAILY 06/03 1000 AC 06/06 PO 0940 Ondansetron HCl 4 MG Q6P PRN 06/03 1500 AC IV Oxycodone/ 1 TAB Q4P PRN 06/03 1500 AC 06/06 Acetaminophen PO 202 Oxycodone/ 2 TAB Q4P PRN 06/03 1500 AC Acetaminophen PO Polyethylene Glycol 17 GM DAILY NEEDED PRN 06/03 1500 AC PO Senna/Docusate Sodium 2 TAB AT BEDTIME NEED.. 06/03 1500 AC PO Results Last 48 Hours of Labs: Laboratory Tests 06/06 06 Chemistry Sodium (137 - 145 mmol/L) 140 Potassium (3.5 - 5.1 mmol/L) 3.9 Chloride (98 - 107 mmol/L) 103 Carbon Dioxide (22 - 30 mmol/L) 28 Anion Gap (5 - 16) 9 BUN (9 - 20 mg/dL) 23 H Creatinine (0.7 - 1.2 mg/dL) 1.1 Estimated GFR (>60 ml/min) > 60 BUN/Creatinine Ratio (7 - 25 %) 20.9 Hematology CBC w Diff NO MAN DIFF REQ WBC (4.8 - 10.8 /CUMM) 11.8 H RBC (4.70 - 6.10 /CUMM) 3.83 L Hgb (14.0 - 18.0 G/DL) 12.0 L Hct (42 - 52 %) 34.5 L MCV (80.0 - 94.0 FL) 89.9 MCH (27.0 - 31.0 PG) 31.2 H MCHC (33.0 - 37.0 G/DL) 34.7 RDW (11.5 - 14.5 %) 14.5 Plt Count (130 - 400 /CUMM) 140 MPV (7.4 - 10.4 FL) 10.6 H Gran % (42.2 - 75.2 %) 63.9 Lymphocytes % (20.5 - 51.1 %) 26.3 Monocytes % (1.7 - 9.3 %) 8.7 Eosinophils % (0 - 5 %) 0.8 Basophils % (0.0 - 2.0 %) 0.3 Absolute Granulocytes (1.4 - 6.5 /CUMM) 7.5 H Absolute Lymphocytes (1.2 - 3.4 /CUMM) 3.1 Absolute Monocytes (0.10 - 0.60 /CUMM) 1.0 H Absolute Eosinophils (0.0 - 0.7 /CUMM) 0.1 Absolute Basophils (0.0 - 0.2 /CUMM) 0 Assessment/Plan Assessment/Plan 76 M POD 3 s/p R TKR, complicated by atrial fibrillation with bradycardia, resolved and acute kidney injury, resolved and hypomagnesemia, resolved Cont tele Reg diet OOB PT, WBAT Pain medication prn Eliquis 5 bid for DVT prophylaxis/A. fib GI ppx on board Regular Home meds Cont dry dressing changes daily Appreciate cardiology and medicine involvement Anticipate discharge home with [facility] later today as long as medicine and cardiology agree Will d/w Dr. Andrea Core Measures Venous Thromboembolism VTE Risk Factors Surgery No Mechanical VTE Prophylaxis d/t N/A MechProphylax Ordered No VTE Pharm Prophylaxis d/t NA PharmProphylax ordered
[2017-06-07 08:06] VITALS: BP 158/78
--- NOTE | 2017-06-07 12:19 | PN- Cardiology ---
Subjective Subjective: The patient reports that he is feeling well from a cardiac standpoint. No chest pain. No shortness of breath. No palpitations. No nausea or vomiting Objective Vital Signs and I&Os Vital Signs Date Time Temp Pulse Resp B/P B/P Pulse O2 O2 Flow FiO2 Mean Ox Delivery Rate 06/07 0806 98 158/78 / 0600 97.4 98 18 158/78 96 06/06 2300 98.4 90 18 158/98 94 06/06 2108 122 06/06 1526 98.6 96 18 144/66 95 Intake & Output 06/07 1600 06/07 0806/07 0000 06/06 1600 06/06 0800 06/06 0000 Intake Total 400 600 600 440 Output Total 1275 350 800 630 Balance -875 250 -200 -190 Intake, Oral 400 600 600 440 Number 1 Bowel Movements Output, Urine 1275 350 800 630 Physical Exam: Gen: NAD HEENT: normal Lungs: clear to auscultation, normal resp. effort Heart: RRR, Irregular S1, S2, 1 out of 6 systolic murmur Abdomen: Soft, nontender, no masses Extremities: No clubbing, cyanosis, or edema. Neuro: Alert and oriented x 3, cranial nerves intact Current Medications: Current Medications Sig/Rob Start time Last Medication Dose Route Stop Time Status Admin Acetaminophen 500 MG Q4-6 PRN PRN 06/05 1600 AC 06/06 PO 0943 Apixaban 5 MG BID 06/05 220 AC 06/07 PO 08 Atorvastatin Calcium 20 MG 1700 06/03 1700 AC 06/06 PO 1542 Diltiazem HCl 180 MG DAILY 06/03 1000 AC 06/07 PO 0806 Docusate Sodium 100 MG BID 06/05 2199 AC 06/07 PO 0805 Doxazosin Mesylate 4 MG AT BEDTIME 06/05 220 AC 06/06 PO 210 Magnesium Chloride 128 MG AT BEDTIME 06/03 2199 AC 06/06 PO 210 Melatonin 5 MG AT BEDTIME 06/04 2199 AC 06/04 PO 203 Metoprolol Succinate 50 MG AT BEDTIME 06/04 220 AC 06/06 PO 210 Metoprolol Succinate 100 MG QAM 06/04 1000 AC 06/07 PO 0806 Morphine Sulfate 2 MG Q3P PRN 06/03 1500 AC IV Morphine Sulfate 4 MG Q3P PRN 06/03 1500 AC IV Omeprazole 20 MG DAILY 06/03 1000 AC 06/07 PO 0806 Ondansetron HCl 4 MG Q6P PRN 06/03 1500 AC IV Oxycodone/ 1 TAB Q4P PRN 06/03 1500 AC 06/07 Acetaminophen PO 0805 Oxycodone/ 2 TAB Q4P PRN 06/03 1500 AC Acetaminophen PO Polyethylene Glycol 17 GM DAILY NEEDED PRN 06/03 1500 AC PO Senna/Docusate Sodium 2 TAB AT BEDTIME NEED.. 06/03 1500 AC PO Results Last 48 Hrs of Labs/Mics: Laboratory Tests 06/06/17622: Anion Gap 9, Estimated GFR > 60, BUN/Creatinine Ratio 20.9, CBC w Diff NO MAN DIFF REQ, RBC 3.83 L, MCV 89.9, MCH 31.2 H, MCHC 34.7, RDW 14.5, MPV 10.6 H, Gran % 63.9, Lymphocytes % 26.3, Monocytes % 8.7, Eosinophils % 0.8, Basophils % 0.3, Absolute Granulocytes 7.5 H, Absolute Lymphocytes 3.1, Absolute Monocytes 1.0 H, Absolute Eosinophils 0.1, Absolute Basophils 0 Assessment/Plan Assessment/Plan Assessment: 1. Atrial fibrillation with post operative bradycardia-- resolved 2. Post op hypotension-- resolved 3. Hypertension 4. Hyperlipidemia 5. COPD not on home oxygen 6. Acute kidney injury-resolved 7. Anemia 8. Hypomagnesemia-resolved Plan: * Continue current cardiac medications * Clear for discharge from cardiac standpoint * Follow up in the office with Dr. Miller Continue telemetry? No
--- NOTE | 2017-06-07 13:55 | PN- Att Addend ---
Attending Addendum Attending Brief Note Mr. Beavers has no complaints today. He appears comfortable while sitting in his chair. He is afebrile. Heart rate is stable and less than 100. Systolic blood pressures mildly elevated at approximately 160. Is in no acute distress. Pulmonary exam reveals equal breath sounds without rales or rhonchi. Cardiovascular exam is unchanged. His extremities are without edema. There are no laboratory results to be reviewed. Accu-Cheks been mildly elevated at times but are acceptable. He is stable to be discharged on his regular medications as noted by Dr. Nur and myself. Surgical follow-up has been arranged and we will schedule a visit within 2 weeks of his discharge as he is going to home physical therapy.
== END 2017-06-07 15:00 | disposition home health service (06) | DRG 470 ==
LOC: SDA 02:26 → CRI 02:26 → CANRESERV 10:58 → ENRESERV 10:58 → EDBEDREQ 12:33 → ENRESERV 12:46 → CANRESERV 12:46 → EDBEDREQ 13:16 → ENRESERV 13:23 → ENTRNSPT 13:36 → EDTRNSPT 13:58 → EDTRNSPTSTS 13:58 → CRI 14:18 → CMPTRNSPT 14:24 → ENTRNSPT 06-05 10:07 → EDTRNSPT 06-05 10:19 → EDTRNSPTSTS 06-05 10:19 → CMPTRNSPT 06-05 10:45 → 1NO 06-05 11:09 → ENTRNSPT 06-07 14:38 → EDTRNSPTSTS 06-07 14:54 → EDTRNSPT 06-07 14:54 → 1NO 06-07 15:00 → CMPTRNSPT 06-07 15:00
PROVIDERS: Nurse Practitioner; Physician Assistant; Physician Assistant Surgical
PROC: 0SRC0J9 Replacement of Right Knee Joint with Synthetic Substitute, Cemented, Open Approach (ICD-10-PCS; principal; 2017-06-03)
DX: M17.11 Unilateral primary osteoarthritis, right knee (principal); N17.9 Acute kidney failure, unspecified; I97.89 Other postprocedural complications and disorders of the circulatory system, not elsewhere classified; I95.81 Postprocedural hypotension; I48.91 Unspecified atrial fibrillation; Z79.01 Long term (current) use of anticoagulants; I10 Essential (primary) hypertension
CPT/HCPCS: 1NP; CCU; 36415; 36592; 73560-RT; 82436; 87086; 88305; 93005; 93010; 97110-GO; 97116-GO; 97161-GP; 97530-GO; C1713; C9290; C9399; J0131; J1100; J2795; J3370; J7040; J7508